=== PATIENT | female | born 1945 | race Two or more races ===

== ENCOUNTER → 2018-06-05 | Outpatient (CLI) | payer MEDICARE, OTHER ==
--- NOTE | 2018-06-05 15:09 | RADIOLOGY REPORT (SQ) ---
EXAM DESCRIPTION: CHEST PA/LATERAL COMPLETED DATE/TIME: 06/05/2018 2:50 pm REASON FOR STUDY: SHORTNESS OF BREATH COMPARISON: Two-view chest 06/15/2015, AP chest 11/16/2014 EXAM PARAMETERS: NUMBER OF VIEWS: two views TECHNIQUE: Digital Frontal and Lateral radiographic views of the chest acquired. RADIATION DOSE: NA LIMITATIONS: none FINDINGS: LUNGS AND PLEURA: Pulmonary vascular congestion is present with interstitial edema at both bases. No pleural effusions. No pneumothorax. Stable bandlike scarring at both bases, unchanged 06/15/2015 chest film. MEDIASTINUM AND HILAR STRUCTURES: No masses or contour abnormalities. HEART AND VASCULAR STRUCTURES: Mild to moderate cardiomegaly BONES: No acute findings. HARDWARE: None in the chest. OTHER: No other significant finding. IMPRESSION: Cardiomegaly with pulmonary vascular congestion and interstitial pulmonary edema. TECHNICAL DOCUMENTATION: JOB ID: [id number] [employer]- All Rights Reserved Reading location - IP/workstation name: [email or web address]
[2018-06-05 15:49] LABS: ABSOLUTE BASOPHILS # (AUTO) 0.1 10^3/uL (0.0-0.2); ABSOLUTE EOSINOPHILS # (AUTO) 0.2 10^3/uL (0.0-0.6); ABSOLUTE LYMPHOCYTES (AUTO) 3.1 10^3/uL (0.5-4.7); ABSOLUTE MONOCYTES (AUTO) 0.5 10^3/uL (0.1-1.4); ABSOLUTE NEUT (AUTO) 6.8 10^3/uL (1.7-8.2); BASOPHILS % (AUTO) 1.2 % (0-2); EOSINOPHILS % (AUTO) 1.9 % (0-6); HEMATOCRIT 38.5 % (36.0-47.0); LYMPHOCYTES % (AUTO) 29.2 % (13-45); MEAN CORPUSCULAR HEMOGLOBIN 29.3 pg (27.0-33.4); MEAN CORPUSCULAR HGB CONC 33.6 g/dL (32.0-36.0); MEAN CORPUSCULAR VOLUME 87 fl (80-97); MONOCYTES % (AUTO) 4.5 % (3-13); PLATELET COUNT 298 10^3/uL (150-450); RED BLOOD COUNT 4.42 10^6/uL (3.72-5.28); RED CELL DISTRIBUTION WIDTH 14.2 % (11.5-14.0); SEGMENTED NEUTROPHILS % (AUTO) 63.2 % (42-78); TOTAL CELLS COUNTED % (AUTO) 100 %; WHITE BLOOD COUNT 10.7 10^3/uL (4.0-10.5)
[2018-06-05 15:58] LABS: ALANINE AMINOTRANSFERASE 47 U/L (9-52); ALBUMIN 4.1 g/dL (3.5-5.0); ALKALINE PHOSPHATASE 98 U/L (38-126); ANION GAP 14 (5-19); ASPARTATE AMINO TRANSFERASE 39 U/L (14-36); BILIRUBIN,DIRECT 0.5 mg/dL (0.0-0.4); BILIRUBIN,TOTAL 0.8 mg/dL (0.2-1.3); BLOOD UREA NITROGEN 20 mg/dL (7-20); CARBON DIOXIDE 19 mmol/L (22-30); CHLORIDE 106 mmol/L (98-107); GLUCOSE 117 mg/dL (75-110); POTASSIUM 5.3 mmol/L (3.6-5.0); SODIUM 139.3 mmol/L (137-145); TOTAL PROTEIN 7.2 g/dL (6.3-8.2)
== END ==
LOC: OD 14:19
PROVIDERS: ATTEND Physician Assistant
DX: R06.02 Shortness of breath (principal); R00.2 Palpitations
CPT/HCPCS: 36415; 71046; 80053; 83735; 85025; 85379

== ENCOUNTER → 2018-06-06 | Outpatient (CLI) | payer MEDICARE, OTHER ==
--- NOTE | 2018-06-06 15:55 | RADIOLOGY REPORT (SQ) ---
EXAM DESCRIPTION: CHEST 2 VIEWS COMPLETED DATE/TIME: 06/06/2018 3:45 pm REASON FOR STUDY: CHEST PAIN; AFIB COMPARISON: 06/05/2018 EXAM PARAMETERS: NUMBER OF VIEWS: two views TECHNIQUE: Digital Frontal and Lateral radiographic views of the chest acquired. RADIATION DOSE: NA LIMITATIONS: none FINDINGS: LUNGS AND PLEURA: Linear atelectasis at the lung bases without improvement. No effusions. MEDIASTINUM AND HILAR STRUCTURES: No masses or contour abnormalities. HEART AND VASCULAR STRUCTURES: Heart enlarged. Vascular congestion. Similar to previous. BONES: No acute findings. HARDWARE: None in the chest. OTHER: No other significant finding. IMPRESSION: No improvement since the prior study. Vascular congestion. Linear atelectasis. TECHNICAL DOCUMENTATION: JOB ID: [id number] [employer]- All Rights Reserved Reading location - IP/workstation name: [email or web address]
--- NOTE | 2018-06-06 16:41 | RADIOLOGY REPORT (SQ) ---
EXAM DESCRIPTION: NM LUNG VENT/PERF SCAN COMPLETED DATE/TIME: 06/06/2018 4:32 pm REASON FOR STUDY: CHEST PAIN; AFIB COMPARISON: None. RADIONUCLIDE AND DOSE: 5.5 millicuries TC-99m MAA Intravenous 30.6 millicuries TC-99m DTPA Inhaled aerosol TECHNIQUE: Eight views of the lungs acquired post ventilation of DTPA aerosol. Eight matching views of the lungs acquired following injection of MAA. LIMITATIONS: None. FINDINGS: VENTILATION: Symmetric and homogeneous distribution of DTPA aerosol during ventilatory pha se. No significant areas of photopenia. PERFUSION: Perfusion images with normal homogenous activity and no wedge-shaped or segmental defects. No ventilation-perfusion mismatches. OTHER: No other significant finding. IMPRESSION: Low probability pulmonary embolus. TECHNICAL DOCUMENTATION: JOB ID: [id number] [email or web address]- All Rights Reserved Reading location - IP/workstation name: [email or web address]
== END ==
LOC: RAD 14:34
PROVIDERS: ATTEND Internal Medicine Cardiovascular Disease
DX: I48.91 Unspecified atrial fibrillation (principal); R07.9 Chest pain, unspecified; J98.11 Atelectasis
CPT/HCPCS: 71046; 78582; A9540; A9567; Q9969

== ENCOUNTER 2018-06-08 01:22 | Inpatient (IN) | payer MEDICARE, OTHER ==
[2018-06-08] MEDS ORDERED: DILTIAZEM HCL INJ 25 MG/5 ML VIAL IV ONE (02:08)
[2018-06-08] MEDS ORDERED: DILTIAZEM HCL/D5W 125 MG/125 ML RTUINJ IV PRN (02:08)
[2018-06-08] MEDS ORDERED: FUROSEMIDE INJ/PF 40 MG/4 ML SDV IV ONE (02:12)
[2018-06-08] MEDS ORDERED: ASPIRIN 81 MG TABLET, CHEWABLE PO ONE (02:22)
[2018-06-08 02:24] LABS: ABSOLUTE BASOPHILS # (AUTO) 0.1 10^3/uL (0.0-0.2); ABSOLUTE LYMPHOCYTES (AUTO) 2.9 10^3/uL (0.5-4.7); ABSOLUTE MONOCYTES (AUTO) 0.5 10^3/uL (0.1-1.4); ABSOLUTE NEUT (AUTO) 10.7 10^3/uL (1.7-8.2); BASOPHILS % (AUTO) 0.9 % (0-2); EOSINOPHILS % (AUTO) 0.3 % (0-6); HEMATOCRIT 38.3 % (36.0-47.0); HEMOGLOBIN 13.4 g/dL (12.0-15.5); LYMPHOCYTES % (AUTO) 20.3 % (13-45); MEAN CORPUSCULAR HEMOGLOBIN 30.5 pg (27.0-33.4); MEAN CORPUSCULAR VOLUME 87 fl (80-97); MONOCYTES % (AUTO) 3.7 % (3-13); PLATELET COUNT 382 10^3/uL (150-450); RED BLOOD COUNT 4.39 10^6/uL (3.72-5.28); RED CELL DISTRIBUTION WIDTH 14.6 % (11.5-14.0); SEGMENTED NEUTROPHILS % (AUTO) 74.8 % (42-78); TOTAL CELLS COUNTED % (AUTO) 100 %; WHITE BLOOD COUNT 14.3 10^3/uL (4.0-10.5)
--- NOTE | 2018-06-08 02:26 | ER Document Report ---
ED Cardiac - General Chief Complaint: Chest Pain > 30 Stated Complaint: CHEST PAIN Time Seen by Provider: 06/08/18 01:59 TRAVEL OUTSIDE OF THE [place] IN LAST 30 DAYS: No - HPI Notes: Patient is a 72-year-old female that presents to the emergency department for chief complaint of shortness of breath and palpitations. Patient states she has been feeling intermittent heart palpitations which she describes as "uncomfortable" for the last few days. Today the symptoms got worse. She has associated diaphoresis but denies any nausea or vomiting. Patient has been seen by her primary care doctor for her shortness of breath. She was diagnosed this week with atrial fibrillation and started on Eliquis and metoprolol. She has been compliant with these medications. She also states she had a negative VQ scan this week as well. She reports her shortness of breath is worsening. She now feels like she is having swelling in her legs and bloating in her abdomen. Her shortness of breath is worse with laying flat. Past Medical History: A. fib, hypertension, diabetes, hypothyroidism Past Surgical History: Reviewed in chart Social History: Denies drugs alcohol and tobacco Family History: Reviewed and noncontributory for presenting illness Allergies: Reviewed, see documented allergy list. REVIEW OF SYSTEMS: CONSTITUTIONAL : No fever No chills diaphoresis No recent illness EENT: No vision changes No congestion No sore throat CARDIOVASCULAR: chest pain palpitations RESPIRATORY: shortness of breath No cough No difficulty breathing GASTROINTESTINAL: No abdominal pain No nausea No vomiting No diarrhea GENITOURINARY: No dysuria No hematuria No difficulty urinating MUSCULOSKELETAL: No back pain No leg pain No arm pain SKIN: No rashes No lesions LYMPHATIC: No swollen, enlarged glands. NEUROLOGICAL: No lightheadedness No headache No weakness No paresthesias PSYCHIATRIC: No anxiety No depression PHYSICAL EXAMINATION: Vital signs reviewed, nursing noted reviewed. GENERAL: well-nourished and in mild acute distress. HEAD: Atraumatic, normocephalic. EYES: Eyes appear normal, extraocular movements intact, sclera anicteric, conjunctiva are normal. ENT: nares patent, oropharynx clear without exudates. Moist mucous membranes. NECK: Normal range of motion, supple without lymphadenopathy LUNGS: Bibasilar rhonchi, diminished lung sounds diffusely, mild accessory muscle use and tachypnea HEART: Tachycardic, irregularly irregular rhythm without murmurs ABDOMEN: Protuberant soft, nontender, normoactive bowel sounds. No rebound, guarding, or rigidity. No masses appreciated. EXTREMITIES: Nontender, good range of motion, +2 pitting edema bilateral lower extremities NEUROLOGICAL: No focal neurological deficits. Moves all extremities spontaneously Motor and sensory grossly intact on exam. PSYCH: Normal mood, normal affect. SKIN: Warm, Dry, normal turgor, no rashes or lesions noted on exposed skin - Related Data Allergies/Adverse Reactions: iodine [Iodine] Allergy (Unknown, Verified 11/10/14 08:28) unsure Tuberculin,Ppd,Multi-Puncture [From Tuberculin PPD Miryam Test] Adverse Reaction (Intermediate, Verified 11/10/14 08:27) area swelled up had positive reaction Past Medical History - Social History Smoking Status: Never Smoker Family History: Reviewed & Not Pertinent - Past Medical History Cardiac Medical History: Reports: Hx Coronary Artery Disease, Hx Hypertension Denies: Hx Heart Attack Pulmonary Medical History: Denies: Hx Asthma - seasonal allergies, Hx Bronchitis, Hx COPD, Hx Pneumonia Neurological Medical History: Denies: Hx Seizures Musculoskeletal Medical History: Denies Hx Arthritis Past Surgical History: Reports: Hx Hysterectomy - Immunizations Hx Diphtheria, Pertussis, Tetanus Vaccination: Yes Physical Exam - Vital signs Vitals: Temp Pulse Resp BP Pulse Ox 97.5 F 136 H 20 106/74 98 06/08/18 01:37 06/08/18 01:37 06/08/18 01:37 06/08/18 01:37 06/08/18 01:37 Course - Re-evaluation Re-evalutation: 06/08/18 02:26 Vitals reviewed. Nursing notes reviewed. Patient is in atrial fibrillation with RVR. She was placed on telemetry monitoring. Patient started on Cardizem for rate control. She appears edematous and chest x-ray recently showed pulmonary edema. Patient was given a dose of Lasix for her fluid overload state. She was also given aspirin for her complaint of chest pain. 06/08/18 03:43 Patient reevaluated and is feeling better with her heart rate controlled. Her heart rate currently is 98 on the Cardizem infusion. Chest x-ray shows pulmonary vascular congestion which is unchanged from her x-rays earlier this week. Her troponin is negative. She does have an elevation in her BNP however there are no comparison studies available. Patient will be admitted to the hospital for further cardiac care. I did discuss her case with Dr. Birch who has seen her in the office this week, he feels comfortable with her being admitted at this facility and will see her on consultation. Case was discussed with Dr. Payan who requested a delta troponin and bilateral venous duplex. Dr. Payan accepts admission. Patient is stable at time of admission and in agreement with plan of care. Laboratory 06/08/18 06/08/18 06/08/18 02:19 02:19 02:19 WBC 14.3 H RBC 4.39 Hgb 13.4 Hct 38.3 MCV 87 MCH 30.5 MCHC 35.0 RDW 14.6 H Plt Count 382 Seg Neutrophils % 74.8 Lymphocytes % 20.3 Monocytes % 3.7 Eosinophils % 0.3 Basophils % 0.9 Absolute Neutrophils 10.7 H Absolute Lymphocytes 2.9 Absolute Monocytes 0.5 Absolute Eosinophils 0.0 Absolute Basophils 0.1 Sodium 133.6 L Potassium 5.4 H Chloride 103 Carbon Dioxide 19 L Anion Gap 12 BUN 33 H Creatinine 1.27 H Est GFR ( Amer) 50 L Est GFR (Non-Af Amer) 42 L Glucose 140 H Calcium 9.6 Troponin I < 0.012 NT-Pro-B Natriuret Pep 3760 H Chest X-Ray 06/08/18 02:00 IMPRESSION: Little change from the prior, as above copyright 2011 [employer]- All Rights Reserved - Vital Signs Vital signs: Temp Pulse Resp BP Pulse Ox 97.5 F 136 H 20 106/74 98 06/08/18 01:37 06/08/18 01:37 06/08/18 01:37 06/08/18 01:37 06/08/18 01:37 - Laboratory Result Diagrams: 06/08/18 02:19 06/08/18 02:19 Laboratory results interpreted by me: 06/08/18 06/08/18 06/08/18 02:19 02:19 02:19 WBC 14.3 H RDW 14.6 H Absolute Neutrophils 10.7 H Sodium 133.6 L Potassium 5.4 H Carbon Dioxide 19 L BUN 33 H Creatinine 1.27 H Est GFR ( Amer) 50 L Est GFR (Non-Af Amer) 42 L Glucose 140 H NT-Pro-B Natriuret Pep 3760 H - EKG Interpretation by Me Additional EKG results interpreted by me: 06/08/18 02:46 Interpreted by myself [id number]: Atrial fibrillation with RVR, rate 132, normal axis, LVH Critical Care Note - Critical Care Note Total time excluding time spent on procedures (mins): 40 Comments: Discussion with medical representative. Repeat re-evaluations. Potential for cardiovascular decompensation Discharge - Discharge Clinical Impression: Atrial fibrillation with RVR, Peripheral edema, Pulmonary vascular congestion Chest pain Qualifiers: Chest pain type: unspecified Qualified Code(s): R07.9 - Chest pain, unspecified Condition: Stable Disposition: ADMITTED INPATIENT Admitting Provider: [facility] Admitted: [facility]
[2018-06-08 02:48] LABS: ANION GAP 12 (5-19); BLOOD UREA NITROGEN 33 mg/dL (7-20); CALCIUM 9.6 mg/dL (8.4-10.2); CARBON DIOXIDE 19 mmol/L (22-30); CHLORIDE 103 mmol/L (98-107); GLUCOSE 140 mg/dL (75-110); POTASSIUM 5.4 mmol/L (3.6-5.0); SODIUM 133.6 mmol/L (137-145)
[2018-06-08 02:53] LABS: NT PRO BNP 3760 pg/mL (5-900)
--- NOTE | 2018-06-08 02:54 | RADIOLOGY REPORT (SQ) ---
EXAM DESCRIPTION: XR CHEST 1 VIEW COMPLETED DATE/TME: 06/08/2018 02:00 CLINICAL HISTORY: 72 years, Female, SOB COMPARISON: 06/05/2018 chest NUMBER OF VIEWS: 1 TECHNIQUE: AP portable chest LIMITATIONS: None. FINDINGS: The heart is enlarged but stable. Coarse interstitial changes bilaterally. Small bibasilar effusions/pleural thickening. No pneumothorax. Osteopenia. IMPRESSION: Little change from the prior, as above copyright 2010 [employer]- All Rights Reserved
[2018-06-08 02:56] LABS: TROPONIN I < 0.012 ng/mL
[2018-06-08] MEDS ORDERED: ACETAMINOPHEN 325 MG TABLET PO PRN (03:40)
[2018-06-08] MEDS: FUROSEMIDE INJ/PF 20 MG/2 ML SDV IV SCH ×3 (05:49→22:00)
[2018-06-08] MEDS: APIXABAN 5 MG TABLET PO SCH ×2 (09:44→18:19)
[2018-06-08] MEDS: FAMOTIDINE 20 MG TABLET PO SCH ×2 (09:44→23:15)
[2018-06-08 09:55] LABS: CREATINE KINASE MB 0.77 ng/mL (<4.55)
[2018-06-08 10:02] LABS: TROPONIN I < 0.012 ng/mL
--- NOTE | 2018-06-08 10:23 | RADIOLOGY REPORT (SQ) ---
EXAM DESCRIPTION: VENOUS BILATERAL LOWER COMPLETED DATE/TIME: 06/08/2018 9:50 am REASON FOR STUDY: edema COMPARISON: None. TECHNIQUE: Dynamic and static navarrete scale and color images acquired of both lower extremity venous sy stems. Selected spectral images acquired with additional compression and augmentation maneuvers. Imag es stored on PACS. LIMITATIONS: None. FINDINGS: RIGHT LEG COMMON FEMORAL AND FEMORAL: Normal phasicity, compression and augmentation. No visualized echogenic m aterial on navarrete scale. No defects on color images. POPLITEAL: Normal compression and augmentation. No visualized echogenic material on navarrete scale. No de fects on color images. CALF VESSELS: Normal compression and augmentation. No visualized echogenic material on navarrete scale. No defects on color image. GSV AND SSV: Normal compression. No visualized echogenic material on navarrete scale. No defects on color images. ANY DEEP VENOUS INSUFFICIENCY: Not evaluated. ANY EVIDENCE OF POPLITEAL CYST: No. OTHER: No other significant finding. LEFT LEG COMMON FEMORAL AND FEMORAL: Normal phasicity, compression and augmentation. No visualized echogenic m aterial on navarrete scale. No defects on color images. POPLITEAL: Normal compression and augmentation. No visualized echogenic material on navarrete scale. No de fects on color images. CALF VESSELS: Normal compression and augmentation. No visualized echogenic material on navarrete scale. No defects on color images. GSV AND SSV: Normal compression. No visualized echogenic material on navarrete scale. No defects on color images. ANY DEEP VENOUS INSUFFICIENCY: Not evaluated. ANY EVIDENCE POPLITEAL CYST: No. OTHER: No other significant finding. IMPRESSION: NO EVIDENCE DVT OR SVT IN EITHER LEG. TECHNICAL DOCUMENTATION: JOB ID: [id number] [employer]- All Rights Reserved Reading location - IP/workstation name: [email or web address]
[2018-06-08 10:51] LABS: ALANINE AMINOTRANSFERASE 259 U/L (9-52); ALBUMIN 3.9 g/dL (3.5-5.0); ALKALINE PHOSPHATASE 108 U/L (38-126); ANION GAP 15 (5-19); ASPARTATE AMINO TRANSFERASE 337 U/L (14-36); BILIRUBIN,DIRECT 0.4 mg/dL (0.0-0.4); BILIRUBIN,TOTAL 0.8 mg/dL (0.2-1.3); BLOOD UREA NITROGEN 33 mg/dL (7-20); CALCIUM 9.7 mg/dL (8.4-10.2); CARBON DIOXIDE 16 mmol/L (22-30); CHLORIDE 102 mmol/L (98-107); GLUCOSE 136 mg/dL (75-110); POTASSIUM 4.6 mmol/L (3.6-5.0); SODIUM 133.2 mmol/L (137-145); TOTAL PROTEIN 7.1 g/dL (6.3-8.2)
[2018-06-08] MEDS: DILTIAZEM HCL 90 MG TABLET PO SCH ×2 (11:26→18:18)
--- NOTE | 2018-06-08 12:52 | EKG REPORT ---
SEVERITY:- ABNORMAL ECG - ATRIAL FLUTTER/FIBRILLATION, A-RATE 265 NONSPECIFIC INTRAVENTRICULAR CONDUCTION DELAY PROBABLE LEFT VENTRICULAR HYPERTROPHY : Confirmed by: Flynn Birch 08-Jun-2018 12:52:31
[2018-06-08] MEDS ORDERED: CEFTRIAXONE 1 GM/D5W RTU 1 GM/50 ML RTUPB IV SCH (13:00)
--- NOTE | 2018-06-08 13:00 | PDOC H&P ---
History of Present Illness Admission Date/PCP: 06/08/18 03:47 ASHELY WEISS MD Patient complains of: Shortness of the breath chest pain History of Present Illness: ALMA BO is a 72 year old female This is a 72-year-old female with a history of the hypertension's hyperlipidemia just recently diagnosed with the atrial fibrillation's this week seen by my lani caal start on a beta-jim and seen by the Dr. Birch the calender runner 2 days back started on Eliquis and increased metoprolol Patient's son noticed that the patient having intermittent heart palpitations and she is feeling uncomfortable and the patient's was a little bit diaphoretic but denied any nausea vomiting and patients came to the emergency department well patient responded to defibrillation with a rapid ventricular response and patient was put on a Cardizem drip So the patient's patient is feeling better the heart rate is running 70-90 range Currently her stress test and echocardiogram done by Dr. Birch and according to the heme everything was normal Patient was complained of some abdominal discomfort and all of the LFT was elevated was all normal to 3 days back Patient is otherwise no nausea no vomiting feeling much better no chest pain no short of breath Patient has a long-standing history of the smoking and history of the type 2 diabetes and hypothyroidism Past Medical History Cardiac Medical History: Reports: Coronary Artery Disease, Hypertension Denies: Myocardial Infarction Pulmonary Medical History: Denies: Asthma - seasonal allergies, Bronchitis, Chronic Obstructive Pulmonary Disease (COPD), Pneumonia Neurological Medical History: Denies: Seizures Endocrine Medical History: Reports: Diabetes Mellitus Type 2 GI Medical History: Reports: Gastroesophageal Reflux Disease Musculoskeltal Medical History: Denies: Arthritis Hematology: Denies: Anemia Past Surgical History Past Surgical History: Reports: Hysterectomy Social History Smoking Status: Former Smoker Last Time Smoked: 2009 Frequency of Alcohol Use: Occasional Hx Recreational Drug Use: No Hx Prescription Drug Abuse: No Family History Family History: Reviewed & Not Pertinent Parental Family History Reviewed: Yes Children Family History Reviewed: Yes Sibling(s) Family History Reviewed.: Yes Medication/Allergy Home Medications: Cetirizine HCl [Zyrtec 10 mg Tablet] 10 mg PO DAILY 06/08/18 Ezetimibe [Zetia 10 mg Tablet] 10 mg PO DAILY 06/08/18 Levothyroxine Sodium [Synthroid 0.1 mg Tablet] 0.1 mg PO Q6AM 12/29/18 Lisinopril [Prinivil] 20 mg PO DAILY 06/08/18 Metformin HCl [Glucophage 500 mg Tablet] 500 mg PO DAILY 06/08/18 Metoprolol Tartrate [Lopressor 25 mg Tablet] 25 mg PO Q12 06/08/18 Allergies/Adverse Reactions: iodine [Iodine] Allergy (Unknown, Verified 11/10/14 08:28) unsure Tuberculin,Ppd,Multi-Puncture [From Tuberculin PPD Miryam Test] Adverse Reaction (Intermediate, Verified 11/10/14 08:27) area swelled up had positive reaction Review of Systems Constitutional: ABSENT: chills, fever(s), headache(s), weight gain, weight loss Eyes: ABSENT: visual disturbances Ears: ABSENT: hearing changes Cardiovascular: PRESENT: chest pain, dyspnea on exertion. ABSENT: edema, orthropnea, palpitations Respiratory: ABSENT: cough, hemoptysis Gastrointestinal: PRESENT: abdominal pain. ABSENT: constipation, diarrhea, hematemesis, hematochezia, nausea, vomiting Genitourinary: ABSENT: dysuria, hematuria Musculoskeletal: ABSENT: joint swelling Integumentary: ABSENT: rash, wounds Neurological: ABSENT: abnormal gait, abnormal speech, confusion, dizziness, focal weakness, syncope Psychiatric: ABSENT: anxiety, depression, homidical ideation, suicidal ideation Endocrine: ABSENT: cold intolerance, heat intolerance, menstrual abnormalities, polydipsia, polyuria Hematologic/Lymphatic: ABSENT: easy bleeding, easy bruising, lymphadenopathy Physical Exam Vital Signs: Temp Pulse Resp BP Pulse Ox 98.4 F 72 20 118/65 98 06/08/18 11:40 06/08/18 12:00 06/08/18 11:40 06/08/18 12:00 06/08/18 11:40 Intake & Output 06/07/18 06/08/18 06/09/18 06:59 06:59 06:59 Intake Total 2 95 Balance 2 95 Weight 102 kg General appearance: PRESENT: no acute distress, well-developed, well-nourished Head exam: PRESENT: atraumatic, normocephalic Eye exam: PRESENT: conjunctiva pink, EOMI, PERRLA. ABSENT: scleral icterus Ear exam: PRESENT: normal external ear exam Mouth exam: PRESENT: moist, tongue midline Neck exam: PRESENT: full ROM. ABSENT: carotid bruit, JVD, lymphadenopathy, thyromegaly Respiratory exam: PRESENT: clear to auscultation patrice Cardiovascular exam: PRESENT: RRR. ABSENT: diastolic murmur, rubs, systolic murmur Pulses: PRESENT: normal dorsalis pedis pul, +2 pedal pulses bilateral Vascular exam: PRESENT: normal capillary refill GI/Abdominal exam: PRESENT: normal bowel sounds, soft. ABSENT: distended, guarding, mass, organolmegaly, rebound, tenderness Rectal exam: PRESENT: deferred Musculoskeletal exam: PRESENT: ambulatory Neurological exam: PRESENT: alert, awake, oriented to person, oriented to place, oriented to time, oriented to situation, CN II-XII grossly intact. ABSENT: motor sensory deficit Psychiatric exam: PRESENT: appropriate affect, normal mood. ABSENT: homicidal ideation, suicidal ideation Skin exam: PRESENT: dry, intact, warm. ABSENT: cyanosis, rash Results Laboratory Results: 06/08/18 02:19 06/08/18 09:00 06/08/18 06/08/18 06/08/18 02:19 02:19 02:19 WBC 14.3 H RBC 4.39 Hgb 13.4 Hct 38.3 MCV 87 MCH 30.5 MCHC 35.0 RDW 14.6 H Plt Count 382 Seg Neutrophils % 74.8 Lymphocytes % 20.3 Monocytes % 3.7 Eosinophils % 0.3 Basophils % 0.9 Absolute Neutrophils 10.7 H Absolute Lymphocytes 2.9 Absolute Monocytes 0.5 Absolute Eosinophils 0.0 Absolute Basophils 0.1 Sodium 133.6 L Potassium 5.4 H Chloride 103 Carbon Dioxide 19 L Anion Gap 12 BUN 33 H Creatinine 1.27 H Est GFR ( Amer) 50 L Est GFR (Non-Af Amer) 42 L Glucose 140 H Calcium 9.6 Magnesium Total Bilirubin AST ALT Alkaline Phosphatase Total Protein Albumin TSH 1.62 06/08/18 09:00 WBC RBC Hgb Hct MCV MCH MCHC RDW Plt Count Seg Neutrophils % Lymphocytes % Monocytes % Eosinophils % Basophils % Absolute Neutrophils Absolute Lymphocytes Absolute Monocytes Absolute Eosinophils Absolute Basophils Sodium 133.2 L Potassium 4.6 Chloride 102 Carbon Dioxide 16 L Anion Gap 15 BUN 33 H Creatinine 1.19 Est GFR ( Amer) 54 L Est GFR (Non-Af Amer) 45 L Glucose 136 H Calcium 9.7 Magnesium 1.8 Total Bilirubin 0.8 AST 337 H ALT 259 H Alkaline Phosphatase 108 Total Protein 7.1 Albumin 3.9 TSH 06/08/18 06/08/18 06/08/18 02:19 09:00 09:00 Creatine Kinase 52 CK-MB (CK-2) 0.77 Troponin I < 0.012 < 0.012 NT-Pro-B Natriuret Pep 3760 H Impressions: Chest X-Ray 06/08/18 02:00 IMPRESSION: Little change from the prior, as above copyright 2011 [employer]- All Rights Reserved Venous Doppler Study 06/08/18 03:38 IMPRESSION: NO EVIDENCE DVT OR SVT IN EITHER LEG. Assessment & Plan - Diagnosis (1) Atrial fibrillation with RVR Is this a current diagnosis for this admission?: Yes Plan: Patient is currently on a Cardizem drip is currently already on Eliquis as per discussed with the cardiology switch to the p.o. Cardizem (2) Chest pain Qualifiers: Chest pain type: unspecified Qualified Code(s): R07.9 - Chest pain, unspecified Is this a current diagnosis for this admission?: Yes Plan: Is likely from the atrial fibrillation's patient's initial 2 cardiac enzyme is negative recent stress is also negative's will consult the cardiology Patient's VQ scan is also negative and the ultrasound of the lower extremities also negative (3) Congestive heart failure Qualifiers: Heart failure type: diastolic Heart failure chronicity: acute Qualified Code(s): I50.31 - Acute diastolic (congestive) heart failure Is this a current diagnosis for this admission?: Yes Plan: With new onset of the heart failure with recent echocardiogram was stable will consult the cardiology Dr. Birch for further evaluation and start the Lasix IV every 8 (4) Abnormal LFTs Is this a current diagnosis for this admission?: Yes Plan: Get the ultrasound of the abdomen and the CT abdomen and gallbladder disease Is likely a possible vascular congestions (5) Hypertension Qualifiers: Hypertension type: essential hypertension Qualified Code(s): I10 - Essential (primary) hypertension Is this a current diagnosis for this admission?: Yes (6) Hypothyroidism Qualifiers: Hypothyroidism type: unspecified Qualified Code(s): E03.9 - Hypothyroidism, unspecified Is this a current diagnosis for this admission?: Yes (7) Type 2 diabetes mellitus Qualifiers: Diabetes mellitus shelter insulin use: without extermination supervisor use Is this a current diagnosis for this admission?: Yes Plan: Continues a sliding scale (8) Leukocytosis Qualifiers: Leukocytosis type: unspecified Qualified Code(s): D72.829 - Elevated white blood cell count, unspecified Is this a current diagnosis for this admission?: Yes Plan: Get the CT scan of the abdomen and pelvis to rule out any etiology for the gallbladder Start the patient on IV Rocephin Get the blood culture urine culture - Time Time Spent: 50 to 70 Minutes Medications reviewed and adjusted accordingly: Yes Anticipated discharge: Home Within: Other - Inpatient Certification Based on my medical assessment, after consideration of the patient's comorbidities, presenting symptoms, or acuity I expect that the services needed warrant INPATIENT care.: Yes I certify that my determination is in accordance with my understanding of Medic are's requirements for reasonable and necessary INPATIENT services [42 CFR 412.3e].: Yes Medical Necessity: Need Close Monitoring Due to Risk of Patient Decompensation, Need For Continuous Telemetry Monitoring Post Hospital Care: D/C Travelift Operator Documentation - Plan Summary Plan Summary: Patient examined and seen in IMCU with extensive discussed with the patient and the nursing staff and patient's cardiology
--- NOTE | 2018-06-08 13:31 | RADIOLOGY REPORT (SQ) ---
EXAM DESCRIPTION: CT ABD/PELVIS NO ORAL OR IV COMPLETED DATE/TIME: 06/08/2018 1:14 pm REASON FOR STUDY: abd pain COMPARISON: None. TECHNIQUE: CT scan of the abdomen and pelvis performed without intravenous or oral contrast. Images reviewed with lung, soft tissue, and bone windows. Reconstructed coronal and sagittal MPR images revi ewed. All images stored on PACS. All CT scanners at this facility use dose modulation, iterative reconstruction, and/or weight based d osing when appropriate to reduce radiation dose to as low as reasonably achievable (ALARA). [facility]: Dose Right [facility]: CareDose [facility]: Dose Right [facility]: Teradose 4D [facility]: [employer] RADIATION DOSE: CT Rad equipment meets quality standard of care and radiation dose reduction techniq ues were employed. CTDIvol: 20.6 mGy. DLP: 1007 mGy-cm.mGy. LIMITATIONS: None. FINDINGS: LOWER CHEST: Bilateral small -moderate pleural effusions. Patchy areas of basilar subsegm ental volume loss and consolidation. Cardiomegaly. No pericardial effusion. NON-CONTRASTED LIVER, SPLEEN, ADRENALS: Liver looks prominent and likely fatty. No focal lesions. S pleen and adrenals unremarkable. PANCREAS: No masses. No peripancreatic inflammatory changes. GALLBLADDER: No identified stones by CT criteria. No inflammatory changes to suggest cholecystitis. RIGHT KIDNEY AND URETER: No solid masses. No significant calcification. No hydronephrosis or hydroure ter. LEFT KIDNEY AND URETER: No solid masses. No significant calcification. No hydronephrosis or hydrouret er. AORTA AND RETROPERITONEUM: Dense aortic calcification without aneurysm. No retroperitoneal mass or a denopathy. BOWEL AND PERITONEAL CAVITY: Diverticular disease in the distal colon but no active diverticulitis storm ggested. No mechanical bowel obstruction or ascites or abnormal gas. APPENDIX: Normal. PELVIS, BLADDER, AND ABDOMINAL WALL:No abnormal masses. No free fluid. Bladder normal. BONES: No significant findings. OTHER: No other significant finding. IMPRESSION: 1. No acute or suspicious abdominopelvic abnormality. 2. Pulmonary findings as above. Basilar effusions and airspace disease/volume loss. Concerning for pneumonia and/or congestive failu re. TECHNICAL DOCUMENTATION: JOB ID: [id number] Quality ID # [id number]: Final reports with documentation of one or more dose reduction techniques (e.g., Au tomated exposure control, adjustment of the mA and/or kV according to patient size, use of iterative reconstruction technique) 2010 [employer]- All Rights Reserved Reading location - IP/workstation name: [email or web address]
--- NOTE | 2018-06-08 13:32 | RADIOLOGY REPORT (SQ) ---
EXAM DESCRIPTION: U/S ABDOMEN COMPLETE W/O DOP COMPLETED DATE/TIME: 06/08/2018 1:21 pm REASON FOR STUDY: abnormal lft/abd pain COMPARISON: None. TECHNIQUE: Dynamic and static grayscale images acquired of the abdomen and recorded on PACS. Additio nal selected color Doppler and spectral images recorded. LIMITATIONS: Limited by body habitus and acoustical interference from gas. FINDINGS: PANCREAS: Not seen. LIVER: Fatty. Enlarged at 27 cm. No focal mass. LIVER VASCULATURE: Normal directional flow of the main portal vein and hepatic veins. GALLBLADDER: Gallbladder has wall thickness of approximately 4 mm. This may be due to contracted sta te (patient not NPO. No stones. ULTRASOUND-DETECTED HANEY'S SIGN: Negative. INTRAHEPATIC DUCTS AND COMMON DUCT: CBD and intrahepatic ducts normal caliber. No filling defects. INFERIOR VENA CAVA: Not seen. AORTA: Not seen. RIGHT KIDNEY: Normal size. Normal echogenicity. No solid or suspicious masses. No hydronephrosis. No calcifications. PERITONEAL AND RIGHT PLEURAL SPACE: Pleural fluid. Better seen on CT. OTHER: No other significant findings. IMPRESSION: 1. Fatty enlarged liver. 2. Contracted gallbladder without stones or evidence of acute cholecystitis. TECHNICAL DOCUMENTATION: JOB ID: [id number] [employer]- All Rights Reserved Reading location - IP/workstation name: [email or web address]
[2018-06-08] MEDS: LEVOTHYROXINE SODIUM 0.1 MG TABLET PO SCH (15:09)
[2018-06-08] MEDS: CEFTRIAXONE SODIUM 1,000 MG in DEXTROSE 5%-WATER 50 ML IV SCH (15:10)
[2018-06-08 16:32] LABS: CREATINE KINASE MB 0.74 ng/mL (<4.55)
[2018-06-08 16:36] LABS: TROPONIN I < 0.012 ng/mL
--- NOTE | 2018-06-08 20:31 | EKG REPORT ---
SEVERITY:- ABNORMAL ECG - A FIB-FLUTTER WITH VARIABLE CONDUCTION NONSPECIFIC INTRAVENTRICULAR CONDUCTION DELAY PROBABLE LEFT VENTRICULAR HYPERTROPHY : Confirmed by: Flynn Birch 08-Jun-2018 20:30:15
--- NOTE | 2018-06-08 20:46 | PDOC PROGRESS REPORT ---
Subjective Progress Note for:: 06/08/18 Subjective:: Patient was seen in the office and regularly follows up with me. She is a noted to have atrial flutter and fibrillation on a recent of his visit two days ago. At that time her main complaint was shortness of breath, fatigue and tiredness. Patient was started on Eliquis therapy and was also placed on metoprolol 25 mg three times a day. Patient was also placed on a cardiac event monitor. Subsequently however patient noted progressive shortness of breath and presented to the emergency room. In the emergency room she was noted to have elevated heart rate response and received IV Cardizem, subsequently started on bolus and also received IV diuretics. Following that she improved significantly. Reason For Visit: AFIB WITH RVR Physical Exam Vital Signs: Temp Pulse Resp BP Pulse Ox 98.3 F 110 H 19 123/57 L 97 06/08/18 19:13 06/08/18 20:20 06/08/18 19:13 06/08/18 19:13 06/08/18 19:13 Intake & Output 06/07/18 06/08/18 06/09/18 06:59 06:59 06:59 Intake Total 2 463 Output Total 1400 Balance 2 -937 Weight 102 kg Exam: GEN: NAD, patient alert oriented x3. Appearance and grooming WNL HEENT : Eyes: MANAS, Ears: No significant abnormalities, Nose: No significant abnormalities. normocephalic atraumatic. Flat midface (-), Receding chin (-) ORAL : Mallampati class IV, narrow arched palate (-) Tonsils: Not enlarged. NECK: no thyromegaly, no masses, trachea is central, JVD is 14 cm elevated, carotids 2+ with bruit (-) RESP: by basal a fine crackles noted, no wheezes or rhonchi, nonlabored, accessory muscles of respiration use (-). CV: NL S1 and S2. No significant murmurs noted, no gallop, no extra sounds, no clicks, no rub noted. GI: abd NT to palpation, no masses, bowel sounds present, no guarding or rigidity noted. EXT: no clubbing, (-) cyanosis, edema (1+), perpheral pulses diminished (no) MUSC/SKEL: no acute joint swelling noted. Muscle strength is generally intact. NEURO: no significant focal neurological deficits are note, sensation grossly intact, AO x 3 PSYCH: NL mood and affect. judgment and insight noted to be intact. SKIN: (-) rash, (-)Signs of pruritus, (-) other significant abnormality Results Laboratory Results: 06/08/18 02:19 06/08/18 09:00 06/08/18 06/08/18 06/08/18 02:19 02:19 02:19 WBC 14.3 H RBC 4.39 Hgb 13.4 Hct 38.3 MCV 87 MCH 30.5 MCHC 35.0 RDW 14.6 H Plt Count 382 Seg Neutrophils % 74.8 Lymphocytes % 20.3 Monocytes % 3.7 Eosinophils % 0.3 Basophils % 0.9 Absolute Neutrophils 10.7 H Absolute Lymphocytes 2.9 Absolute Monocytes 0.5 Absolute Eosinophils 0.0 Absolute Basophils 0.1 Sodium 133.6 L Potassium 5.4 H Chloride 103 Carbon Dioxide 19 L Anion Gap 12 BUN 33 H Creatinine 1.27 H Est GFR ( Amer) 50 L Est GFR (Non-Af Amer) 42 L Glucose 140 H Calcium 9.6 Magnesium Total Bilirubin AST ALT Alkaline Phosphatase Total Protein Albumin Lipase TSH 1.62 06/08/18 06/08/18 09:00 09:00 WBC RBC Hgb Hct MCV MCH MCHC RDW Plt Count Seg Neutrophils % Lymphocytes % Monocytes % Eosinophils % Basophils % Absolute Neutrophils Absolute Lymphocytes Absolute Monocytes Absolute Eosinophils Absolute Basophils Sodium 133.2 L Potassium 4.6 Chloride 102 Carbon Dioxide 16 L Anion Gap 15 BUN 33 H Creatinine 1.19 Est GFR ( Amer) 54 L Est GFR (Non-Af Amer) 45 L Glucose 136 H Calcium 9.7 Magnesium 1.8 Total Bilirubin 0.8 AST 337 H ALT 259 H Alkaline Phosphatase 108 Total Protein 7.1 Albumin 3.9 Lipase 105.9 TSH 06/08/18 06/08/18 06/08/18 02:19 09:00 09:00 Creatine Kinase 52 CK-MB (CK-2) 0.77 Troponin I < 0.012 < 0.012 NT-Pro-B Natriuret Pep 3760 H 06/08/18 06/08/18 15:07 15:07 Creatine Kinase 52 CK-MB (CK-2) 0.74 Troponin I < 0.012 NT-Pro-B Natriuret Pep EKG Comments: 12 lead EKG shows atrial flutter fibrillation with rapid ventricular response. This was noted on admission EKG and subsequent EKG reveals the same. Impressions: Abdomen Ultrasound 06/08/18 00:00 IMPRESSION: 1. Fatty enlarged liver. 2. Contracted gallbladder without stones or evidence of acute cholecystitis. Abdomen/Pelvis CT 06/08/18 00:00 IMPRESSION: 1. No acute or suspicious abdominopelvic abnormality. 2. Pulmonary findings as above. Basilar effusions and airspace disease/volume loss. Concerning for pneumonia and/or congestive failure. Chest X-Ray 06/08/18 02:00 IMPRESSION: Little change from the prior, as above copyright [employer]- All Rights Reserved Venous Doppler Study 06/08/18 03:38 IMPRESSION: NO EVIDENCE DVT OR SVT IN EITHER LEG. Assessment & Plan - Diagnosis (1) Atrial fibrillation with RVR Is this a current diagnosis for this admission?: Yes (2) Congestive heart failure Qualifiers: Heart failure type: diastolic Heart failure chronicity: acute Qualified Code(s): I50.31 - Acute diastolic (congestive) heart failure Is this a current diagnosis for this admission?: Yes (3) Hypertension Qualifiers: Hypertension type: essential hypertension Qualified Code(s): I10 - Essential (primary) hypertension Is this a current diagnosis for this admission?: Yes (4) Type 2 diabetes mellitus Qualifiers: Diabetes mellitus terminal operator insulin use: without residential use Diabetes mellitus complication status: with unspecified complications Qualified Code(s): E11.8 - Type 2 diabetes mellitus with unspecified complications Is this a current diagnosis for this admission?: Yes (5) Abnormal LFTs Is this a current diagnosis for this admission?: Yes - Notes Notes: Atrial fibrillation with rapid ventricular response: agree with Cardizem drip for rate control. Recommend switch to PO Cardizem, 90 mg PO 8hrs which would be roughly to well those that patient has been getting IV. May also supplement IV Cardizem 10 mg PRN for heart rate above 110 bpm. Continue chronic anticoagulation with Eliquis which was started as an outpatient. Congestive heart failure: patient clearly has CHF based on symptoms, elevated JVP and lung exam. Most likely related to diastolic dysfunction, made worse by atrial fibrillation. Patient has improved significantly with IV diuretics. Patient will benefit from daily weighing. Monitor electrolytes. Consider adding spironolactone therapy if needed. Hypertension: currently blood-pressure reasonably well controlled. Diabetes: being taken care of by the primary health organisation manager very expertly. Abnormal liver function test: feel that this is most likely related to the condition. COPD: I was told by Dr Payan that patient has significant COPD. Therefore agree with switch from better jim to Cardizem for rate control. - Time Time with patient: Greater than 35 minutes - Management plans discussed with Dr Payan and nurses. We'll repeat and EKG for tomorrow morning. Medications reviewed and adjusted accordingly: Yes
[2018-06-08 22:01] LABS: CREATINE KINASE MB 0.79 ng/mL (<4.55)
[2018-06-08 22:06] LABS: TROPONIN I < 0.012 ng/mL
[2018-06-09] MEDS ORDERED: DILTIAZEM HCL 90 MG TABLET ONE (02:05)
[2018-06-09] MEDS: DILTIAZEM HCL 90 MG TABLET PO SCH ×2 (02:28→09:22)
[2018-06-09] MEDS: FUROSEMIDE INJ/PF 20 MG/2 ML SDV IV SCH ×3 (05:24→22:28)
[2018-06-09] MEDS: LEVOTHYROXINE SODIUM 0.1 MG TABLET PO SCH (05:25)
[2018-06-09 06:16] LABS: HEMOGLOBIN 11.9 g/dL (12.0-15.5); MEAN CORPUSCULAR HEMOGLOBIN 29.4 pg (27.0-33.4); MEAN CORPUSCULAR HGB CONC 34.1 g/dL (32.0-36.0); MEAN CORPUSCULAR VOLUME 86 fl (80-97); PLATELET COUNT 285 10^3/uL (150-450); RED BLOOD COUNT 4.06 10^6/uL (3.72-5.28); RED CELL DISTRIBUTION WIDTH 14.7 % (11.5-14.0); WHITE BLOOD COUNT 10.4 10^3/uL (4.0-10.5)
[2018-06-09 06:39] LABS: ALANINE AMINOTRANSFERASE 198 U/L (9-52); ALBUMIN 3.7 g/dL (3.5-5.0); ALKALINE PHOSPHATASE 97 U/L (38-126); ANION GAP 14 (5-19); ASPARTATE AMINO TRANSFERASE 131 U/L (14-36); BILIRUBIN,DIRECT 0.3 mg/dL (0.0-0.4); BILIRUBIN,TOTAL 0.9 mg/dL (0.2-1.3); BLOOD UREA NITROGEN 32 mg/dL (7-20); CALCIUM 9.4 mg/dL (8.4-10.2); CARBON DIOXIDE 21 mmol/L (22-30); CHLORIDE 101 mmol/L (98-107); GLUCOSE 111 mg/dL (75-110); POTASSIUM 4.3 mmol/L (3.6-5.0); SODIUM 136.1 mmol/L (137-145); TOTAL PROTEIN 6.9 g/dL (6.3-8.2)
--- NOTE | 2018-06-09 08:49 | EKG REPORT ---
SEVERITY:- ABNORMAL ECG - ATRIAL FLUTTER, A-RATE 283 NONSPECIFIC INTRAVENTRICULAR CONDUCTION DELAY ABNRM R PROG, CONSIDER ASMI OR LEAD PLACEMENT : Confirmed by: Flynn Birch 09-Jun-2018 08:49:05
[2018-06-09] MEDS: APIXABAN 5 MG TABLET PO SCH ×2 (09:22→17:29)
[2018-06-09] MEDS: FAMOTIDINE 20 MG TABLET PO SCH ×2 (09:22→22:27)
[2018-06-09] MEDS ORDERED: POLYETHYLENE GLYCOL 3350 POWDER 17 GM/1 PACKET PO PRN (10:25)
[2018-06-09] MEDS: CEFTRIAXONE SODIUM 1,000 MG in DEXTROSE 5%-WATER 50 ML IV SCH (11:15)
[2018-06-09] MEDS: DOCUSATE SODIUM 100 MG CAPSULE PO SCH ×2 (11:16→17:30)
--- NOTE | 2018-06-09 11:24 | PDOC PROGRESS REPORT ---
Subjective Progress Note for:: 06/09/18 Subjective:: And is feeling much better Patient is denied any chest pain denied any shortness of the breath Patient is complaining of a little short of breath when patients start moving but other than that no other complaints Reason For Visit: AFIB WITH RVR Physical Exam Vital Signs: Temp Pulse Resp BP Pulse Ox 97.4 F 60 20 133/64 H 93 06/09/18 08:29 06/09/18 08:29 06/09/18 08:29 06/09/18 08:29 06/09/18 08:29 Intake & Output 06/08/18 06/09/18 06/10/18 06:59 06:59 06:59 Intake Total 2 1202 Output Total 3350 Balance 2 -2148 Weight 102 kg 102.4 kg General appearance: PRESENT: no acute distress, well-developed, well-nourished Head exam: PRESENT: atraumatic, normocephalic Eye exam: PRESENT: conjunctiva pink, EOMI, PERRLA. ABSENT: scleral icterus Ear exam: PRESENT: normal external ear exam Mouth exam: PRESENT: moist, tongue midline Neck exam: PRESENT: full ROM. ABSENT: carotid bruit, JVD, lymphadenopathy, thyromegaly Respiratory exam: PRESENT: clear to auscultation patrice Cardiovascular exam: PRESENT: RRR. ABSENT: diastolic murmur, rubs, systolic murmur Pulses: PRESENT: normal dorsalis pedis pul, +2 pedal pulses bilateral Vascular exam: PRESENT: normal capillary refill GI/Abdominal exam: PRESENT: normal bowel sounds, soft. ABSENT: distended, guarding, mass, organolmegaly, rebound, tenderness Rectal exam: PRESENT: deferred Extremities exam: ABSENT: pedal edema Musculoskeletal exam: PRESENT: ambulatory Neurological exam: PRESENT: alert, awake, oriented to person, oriented to place, oriented to time, oriented to situation, CN II-XII grossly intact. ABSENT: motor sensory deficit Psychiatric exam: PRESENT: appropriate affect, normal mood. ABSENT: homicidal ideation, suicidal ideation Skin exam: PRESENT: dry, intact, warm. ABSENT: cyanosis, rash Results Laboratory Results: 06/09/18 05:36 06/09/18 05:36 06/08/18 06/09/18 06/09/18 09:00 05:36 05:36 WBC 10.4 RBC 4.06 Hgb 11.9 L Hct 35.0 L MCV 86 MCH 29.4 MCHC 34.1 RDW 14.7 H Plt Count 285 Sodium 136.1 L Potassium 4.3 Chloride 101 Carbon Dioxide 21 L Anion Gap 14 BUN 32 H Creatinine 1.13 Est GFR ( Amer) 58 L Est GFR (Non-Af Amer) 48 L Glucose 111 H Calcium 9.4 Magnesium 1.7 Total Bilirubin 0.9 AST 131 H ALT 198 H Alkaline Phosphatase 97 Total Protein 6.9 Albumin 3.7 Lipase 105.9 06/08/18 06/08/18 06/08/18 02:19 09:00 09:00 Creatine Kinase 52 CK-MB (CK-2) 0.77 Troponin I < 0.012 < 0.012 NT-Pro-B Natriuret Pep 3760 H 06/08/18 06/08/18 06/08/18 15:07 15:07 21:20 Creatine Kinase 52 53 CK-MB (CK-2) 0.74 Troponin I < 0.012 NT-Pro-B Natriuret Pep 06/08/18 06/09/18 21:20 05:36 Creatine Kinase CK-MB (CK-2) 0.79 Troponin I < 0.012 NT-Pro-B Natriuret Pep 2000 H Impressions: Abdomen Ultrasound 06/08/18 00:00 IMPRESSION: 1. Fatty enlarged liver. 2. Contracted gallbladder without stones or evidence of acute cholecystitis. Abdomen/Pelvis CT 06/08/18 00:00 IMPRESSION: 1. No acute or suspicious abdominopelvic abnormality. 2. Pulmonary findings as above. Basilar effusions and airspace disease/volume loss. Concerning for pneumonia and/or congestive failure. Chest X-Ray 06/08/18 02:00 IMPRESSION: Little change from the prior, as above copyright 2011 [employer]- All Rights Reserved Venous Doppler Study 06/08/18 03:38 IMPRESSION: NO EVIDENCE DVT OR SVT IN EITHER LEG. Assessment & Plan - Diagnosis (1) Atrial fibrillation with RVR Is this a current diagnosis for this admission?: Yes Plan: Discussed with the Dr. Birch change the Cardizem CD 180 twice a day (2) Chest pain Qualifiers: Chest pain type: unspecified Qualified Code(s): R07.9 - Chest pain, unspecified Is this a current diagnosis for this admission?: Yes Plan: Is likely from the atrial fibrillation's patient's initial 2 cardiac enzyme is negative recent stress is also negative's will consult the cardiology Patient's VQ scan is also negative and the ultrasound of the lower extremities also negative (3) Congestive heart failure Qualifiers: Heart failure type: diastolic Heart failure chronicity: acute Qualified Code(s): I50.31 - Acute diastolic (congestive) heart failure Is this a current diagnosis for this admission?: Yes Plan: IV Lasix for another 24 hours and then switch to the p.o. Lasix (4) Abnormal LFTs Is this a current diagnosis for this admission?: Yes Plan: Likely from vascular congestion is currently all improving (5) Hypertension Qualifiers: Hypertension type: essential hypertension Qualified Code(s): I10 - Essential (primary) hypertension Is this a current diagnosis for this admission?: Yes (6) Hypothyroidism Qualifiers: Hypothyroidism type: unspecified Qualified Code(s): E03.9 - Hypothyroidism, unspecified Is this a current diagnosis for this admission?: Yes (7) Type 2 diabetes mellitus Qualifiers: Diabetes mellitus halfway insulin use: without halfway use Diabetes mellitus complication status: with unspecified complications Qualified Code(s): E11.8 - Type 2 diabetes mellitus with unspecified complications Is this a current diagnosis for this admission?: Yes Plan: Continues a sliding scale (8) Leukocytosis Qualifiers: Leukocytosis type: unspecified Qualified Code(s): D72.829 - Elevated white blood cell count, unspecified Is this a current diagnosis for this admission?: Yes Plan: All improving - Time Time Spent with patient: 15-24 minutes Medications reviewed and adjusted accordingly: Yes Anticipated discharge: Home Within: Other - Plan Summary Plan Summary: As changed above otherwise discussed with the patient's cardiology
[2018-06-09] MEDS: DILTIAZEM HCL 180 MG CAPSULE.CR PO SCH ×2 (12:19→22:27)
[2018-06-10 04:47] LABS: HEMATOCRIT 35.1 % (36.0-47.0); MEAN CORPUSCULAR HEMOGLOBIN 29.7 pg (27.0-33.4); MEAN CORPUSCULAR HGB CONC 34.2 g/dL (32.0-36.0); MEAN CORPUSCULAR VOLUME 87 fl (80-97); PLATELET COUNT 301 10^3/uL (150-450); RED BLOOD COUNT 4.03 10^6/uL (3.72-5.28); WHITE BLOOD COUNT 9.9 10^3/uL (4.0-10.5)
[2018-06-10 05:19] LABS: ANION GAP 14 (5-19); BLOOD UREA NITROGEN 28 mg/dL (7-20); CALCIUM 9.5 mg/dL (8.4-10.2); CARBON DIOXIDE 22 mmol/L (22-30); CHLORIDE 101 mmol/L (98-107); GLUCOSE 124 mg/dL (75-110); POTASSIUM 3.8 mmol/L (3.6-5.0); SODIUM 136.5 mmol/L (137-145)
[2018-06-10] MEDS: FUROSEMIDE INJ/PF 20 MG/2 ML SDV IV SCH (05:27)
[2018-06-10] MEDS: LEVOTHYROXINE SODIUM 0.1 MG TABLET PO SCH (05:27)
--- NOTE | 2018-06-10 06:51 | EKG REPORT ---
SEVERITY:- ABNORMAL ECG - ATRIAL FLUTTER, A-RATE 283 NONSPECIFIC INTRAVENTRICULAR CONDUCTION DELAY PROBABLE LEFT VENTRICULAR HYPERTROPHY : Confirmed by: Flynn Birch 10-Jun-2018 06:50:56
[2018-06-10] MEDS: DOCUSATE SODIUM 100 MG CAPSULE PO SCH ×2 (10:44→17:39)
[2018-06-10] MEDS: FAMOTIDINE 20 MG TABLET PO SCH ×2 (10:45→21:53)
[2018-06-10] MEDS: APIXABAN 5 MG TABLET PO SCH ×2 (10:45→17:38)
[2018-06-10] MEDS: DILTIAZEM HCL 120 MG CAP.SR.24H PO SCH ×2 (10:45→21:53)
--- NOTE | 2018-06-10 11:33 | PDOC PROGRESS REPORT ---
Subjective Progress Note for:: 06/10/18 Subjective:: Is currently doing well Patient still have a heart rates go up increase the Cardizem to 240 twice daily Patient's denied any chest pain to than any shortness of the breath As per discussed with the patient's cardiology suggest to switch to the p.o. Lasix and the patient's needs to be more ambulatory before discharge Reason For Visit: AFIB WITH RVR Physical Exam Vital Signs: Temp Pulse Resp BP Pulse Ox 97.7 F 71 14 126/71 H 97 06/10/18 07:36 06/10/18 07:36 06/10/18 07:36 06/10/18 07:36 06/10/18 07:36 Intake & Output 06/09/18 06/10/18 06/11/18 06:59 06:59 06:59 Intake Total 1202 1943 200 Output Total 3350 1999 1774 [facility] -2148 -57 -1575 Weight 102.4 kg 102.1 kg 102.1 kg General appearance: PRESENT: no acute distress, well-developed, well-nourished Head exam: PRESENT: atraumatic, normocephalic Eye exam: PRESENT: conjunctiva pink, EOMI, PERRLA. ABSENT: scleral icterus Ear exam: PRESENT: normal external ear exam Mouth exam: PRESENT: moist, tongue midline Neck exam: PRESENT: full ROM. ABSENT: carotid bruit, JVD, lymphadenopathy, thyromegaly Respiratory exam: PRESENT: clear to auscultation patrice Cardiovascular exam: PRESENT: RRR. ABSENT: diastolic murmur, rubs, systolic murmur Vascular exam: PRESENT: normal capillary refill GI/Abdominal exam: PRESENT: normal bowel sounds, soft. ABSENT: distended, guarding, mass, organolmegaly, rebound, tenderness Rectal exam: PRESENT: deferred Neurological exam: PRESENT: alert, awake, oriented to person, oriented to place, oriented to time, oriented to situation, CN II-XII grossly intact. ABSENT: motor sensory deficit Psychiatric exam: PRESENT: appropriate affect, normal mood. ABSENT: homicidal ideation, suicidal ideation Skin exam: PRESENT: dry, intact, warm. ABSENT: cyanosis, rash Results Laboratory Results: 06/10/18 04:17 06/10/18 04:17 06/10/18 06/10/18 04:17 04:17 WBC 9.9 RBC 4.03 Hgb 12.0 Hct 35.1 L MCV 87 MCH 29.7 MCHC 34.2 RDW 15.0 H Plt Count 301 Sodium 136.5 L Potassium 3.8 Chloride 101 Carbon Dioxide 22 Anion Gap 14 BUN 28 H Creatinine 1.03 Est GFR ( Amer) > 60 Est GFR (Non-Af Amer) 53 L Glucose 124 H Calcium 9.5 06/08/18 06/08/18 06/08/18 02:19 09:00 09:00 Creatine Kinase 52 CK-MB (CK-2) 0.77 Troponin I < 0.012 < 0.012 NT-Pro-B Natriuret Pep 3760 H 06/08/18 06/08/18 06/08/18 15:07 15:07 21:20 Creatine Kinase 52 53 CK-MB (CK-2) 0.74 Troponin I < 0.012 NT-Pro-B Natriuret Pep 06/08/18 06/09/18 06/10/18 21:20 05:36 04:17 Creatine Kinase CK-MB (CK-2) 0.79 Troponin I < 0.012 NT-Pro-B Natriuret Pep 2000 H 1270 H 06/10/18 04:17 Creatine Kinase CK-MB (CK-2) Troponin I < 0.012 NT-Pro-B Natriuret Pep Impressions: Abdomen Ultrasound 06/08/18 00:00 IMPRESSION: 1. Fatty enlarged liver. 2. Contracted gallbladder without stones or evidence of acute cholecystitis. Abdomen/Pelvis CT 06/08/18 00:00 IMPRESSION: 1. No acute or suspicious abdominopelvic abnormality. 2. Pulmonary findings as above. Basilar effusions and airspace disease/volume loss. Concerning for pneumonia and/or congestive failure. Chest X-Ray 06/08/18 02:00 IMPRESSION: Little change from the prior, as above copyright 2011 [facility]- All Rights Reserved Venous Doppler Study 06/08/18 03:38 IMPRESSION: NO EVIDENCE DVT OR SVT IN EITHER LEG. Assessment & Plan - Diagnosis (1) Atrial fibrillation with RVR Is this a current diagnosis for this admission?: Yes Plan: Increase the Cardizem to 240 mg p.o. twice a day (2) Chest pain Qualifiers: Chest pain type: unspecified Qualified Code(s): R07.9 - Chest pain, unspecified Is this a current diagnosis for this admission?: Yes Plan: Is likely from the atrial fibrillation's patient's initial 2 cardiac enzyme is negative recent stress is also negative's will consult the cardiology Patient's VQ scan is also negative and the ultrasound of the lower extremities also negative (3) Congestive heart failure Qualifiers: Heart failure type: diastolic Heart failure chronicity: acute Qualified Code(s): I50.31 - Acute diastolic (congestive) heart failure Is this a current diagnosis for this admission?: Yes Plan: IV Lasix for another 24 hours and then switch to the p.o. Lasix (4) Abnormal LFTs Is this a current diagnosis for this admission?: Yes Plan: Likely from vascular congestion is currently all improving (5) Hypertension Qualifiers: Hypertension type: essential hypertension Qualified Code(s): I10 - Essential (primary) hypertension Is this a current diagnosis for this admission?: Yes (6) Hypothyroidism Qualifiers: Hypothyroidism type: unspecified Qualified Code(s): E03.9 - Hypothyroidism, unspecified Is this a current diagnosis for this admission?: Yes (7) Type 2 diabetes mellitus Qualifiers: Diabetes mellitus alf insulin use: without alf use Diabetes mellitus complication status: with unspecified complications Qualified Code(s): E11.8 - Type 2 diabetes mellitus with unspecified complications Is this a current diagnosis for this admission?: Yes Plan: Continues a sliding scale (8) Leukocytosis Qualifiers: Leukocytosis type: unspecified Qualified Code(s): D72.829 - Elevated white blood cell count, unspecified Is this a current diagnosis for this admission?: Yes Plan: All improving - Time Time Spent with patient: 15-24 minutes Medications reviewed and adjusted accordingly: Yes Anticipated discharge: Home - Plan Summary Plan Summary: Continues current medications
[2018-06-10] MEDS: FUROSEMIDE 40 MG TABLET PO SCH (12:34)
[2018-06-10] MEDS: METOPROLOL TARTRATE 25 MG TABLET PO SCH ×2 (16:20→21:53)
[2018-06-11 06:00] LABS: HEMATOCRIT 35.5 % (36.0-47.0); HEMOGLOBIN 12.2 g/dL (12.0-15.5); MEAN CORPUSCULAR HEMOGLOBIN 29.9 pg (27.0-33.4); MEAN CORPUSCULAR HGB CONC 34.2 g/dL (32.0-36.0); MEAN CORPUSCULAR VOLUME 87 fl (80-97); PLATELET COUNT 314 10^3/uL (150-450); RED BLOOD COUNT 4.07 10^6/uL (3.72-5.28); RED CELL DISTRIBUTION WIDTH 14.7 % (11.5-14.0); WHITE BLOOD COUNT 10.2 10^3/uL (4.0-10.5)
[2018-06-11 06:24] LABS: ANION GAP 13 (5-19); BLOOD UREA NITROGEN 26 mg/dL (7-20); CALCIUM 9.3 mg/dL (8.4-10.2); CARBON DIOXIDE 23 mmol/L (22-30); CHLORIDE 100 mmol/L (98-107); GLUCOSE 118 mg/dL (75-110); POTASSIUM 3.9 mmol/L (3.6-5.0); SODIUM 136.1 mmol/L (137-145)
[2018-06-11] MEDS: LEVOTHYROXINE SODIUM 0.1 MG TABLET PO SCH (06:26)
[2018-06-11] MEDS: APIXABAN 5 MG TABLET PO SCH ×2 (10:31→17:54)
[2018-06-11] MEDS: FAMOTIDINE 20 MG TABLET PO SCH ×2 (10:31→21:35)
[2018-06-11] MEDS: METFORMIN HCL 500 MG TABLET PO SCH (10:31)
[2018-06-11] MEDS: DOCUSATE SODIUM 100 MG CAPSULE PO SCH ×2 (10:31→17:54)
[2018-06-11] MEDS: METOPROLOL TARTRATE 25 MG TABLET PO SCH ×2 (10:31→21:35)
[2018-06-11] MEDS: FUROSEMIDE 40 MG TABLET PO SCH (10:31)
[2018-06-11] MEDS: DILTIAZEM HCL 120 MG CAP.SR.24H PO SCH ×2 (10:32→21:35)
--- NOTE | 2018-06-11 11:46 | PDOC PROGRESS REPORT ---
Subjective Progress Note for:: 06/11/18 Subjective:: Is currently doing well Patient still have a heart rates go up increase the Cardizem to 240 twice daily Patient's denied any chest pain to than any shortness of the breath As per discussed with the patient's cardiology suggest to switch to the p.o. Lasix and the patient's needs to be more ambulatory before discharge Reason For Visit: AFIB WITH RVR Physical Exam Vital Signs: Temp Pulse Resp BP Pulse Ox 98.1 F 58 L 17 125/80 96 06/11/18 08:15 06/11/18 08:15 06/11/18 08:15 06/11/18 08:15 06/11/18 08:15 Intake & Output 06/10/18 06/11/18 06/12/18 06:59 06:59 06:59 Intake Total 194 1236 Output Total 19995 Balance -57 -1639 Weight 102.1 kg 102.1 kg General appearance: PRESENT: no acute distress, well-developed, well-nourished Head exam: PRESENT: atraumatic, normocephalic Eye exam: PRESENT: conjunctiva pink, EOMI, PERRLA. ABSENT: scleral icterus Ear exam: PRESENT: normal external ear exam Mouth exam: PRESENT: moist, tongue midline Neck exam: PRESENT: full ROM. ABSENT: carotid bruit, JVD, lymphadenopathy, thyromegaly Respiratory exam: PRESENT: clear to auscultation patrice Cardiovascular exam: PRESENT: RRR. ABSENT: diastolic murmur, rubs, systolic murmur Pulses: PRESENT: normal dorsalis pedis pul, +2 pedal pulses bilateral Vascular exam: PRESENT: normal capillary refill GI/Abdominal exam: PRESENT: normal bowel sounds, soft. ABSENT: distended, guarding, mass, organolmegaly, rebound, tenderness Rectal exam: PRESENT: deferred Extremities exam: ABSENT: pedal edema Musculoskeletal exam: PRESENT: ambulatory Neurological exam: PRESENT: alert, awake, oriented to person, oriented to place, oriented to time, oriented to situation, CN II-XII grossly intact. ABSENT: motor sensory deficit Psychiatric exam: PRESENT: appropriate affect, normal mood. ABSENT: homicidal ideation, suicidal ideation Skin exam: PRESENT: dry, intact, warm. ABSENT: cyanosis, rash Results Laboratory Results: 06/11/18 05:10 06/11/18 05:10 06/11/18 06/11/18 05:10 05:10 WBC 10.2 RBC 4.07 Hgb 12.2 Hct 35.5 L MCV 87 MCH 29.9 MCHC 34.2 RDW 14.7 H Plt Count 314 Sodium 136.1 L Potassium 3.9 Chloride 100 Carbon Dioxide 23 Anion Gap 13 BUN 26 H Creatinine 0.98 Est GFR ( Amer) > 60 Est GFR (Non-Af Amer) 56 L Glucose 118 H Calcium 9.3 06/08/18 16:30 Clean Catch Midstream Urine Culture - Final Mixed Urogenital Lenora 06/08/18 06/08/18 06/08/18 02:19 09:00 09:00 Creatine Kinase 52 CK-MB (CK-2) 0.77 Troponin I < 0.012 < 0.012 NT-Pro-B Natriuret Pep 3760 H 06/08/18 06/08/18 06/08/18 15:07 15:07 21:20 Creatine Kinase 52 53 CK-MB (CK-2) 0.74 Troponin I < 0.012 NT-Pro-B Natriuret Pep 06/08/18 06/09/18 06/10/18 21:20 05:36 04:17 Creatine Kinase CK-MB (CK-2) 0.79 Troponin I < 0.012 NT-Pro-B Natriuret Pep 2000 H 1270 H 06/10/18 06/11/18 04:17 05:10 Creatine Kinase CK-MB (CK-2) Troponin I < 0.012 NT-Pro-B Natriuret Pep 1230 H Impressions: Abdomen Ultrasound 06/08/18 00:00 IMPRESSION: 1. Fatty enlarged liver. 2. Contracted gallbladder without stones or evidence of acute cholecystitis. Abdomen/Pelvis CT 06/08/18 00:00 IMPRESSION: 1. No acute or suspicious abdominopelvic abnormality. 2. Pulmonary findings as above. Basilar effusions and airspace disease/volume loss. Concerning for pneumonia and/or congestive failure. Chest X-Ray 06/08/18 02:00 IMPRESSION: Little change from the prior, as above copyright 2011 [employer]- All Rights Reserved Venous Doppler Study 06/08/18 03:38 IMPRESSION: NO EVIDENCE DVT OR SVT IN EITHER LEG. Assessment & Plan - Diagnosis (1) Atrial fibrillation with RVR Is this a current diagnosis for this admission?: Yes Plan: Increase the Cardizem to 240 mg p.o. twice a day (2) Chest pain Qualifiers: Chest pain type: unspecified Qualified Code(s): R07.9 - Chest pain, unspecified Is this a current diagnosis for this admission?: Yes (3) Congestive heart failure Qualifiers: Heart failure type: diastolic Heart failure chronicity: acute Qualified Code(s): I50.31 - Acute diastolic (congestive) heart failure Is this a current diagnosis for this admission?: Yes Plan: IV Lasix for another 24 hours and then switch to the p.o. Lasix (4) Abnormal LFTs Is this a current diagnosis for this admission?: Yes (5) Hypertension Qualifiers: Hypertension type: essential hypertension Qualified Code(s): I10 - Essential (primary) hypertension Is this a current diagnosis for this admission?: Yes (6) Hypothyroidism Qualifiers: Hypothyroidism type: unspecified Qualified Code(s): E03.9 - Hypothyroidism, unspecified Is this a current diagnosis for this admission?: Yes (7) Type 2 diabetes mellitus Qualifiers: Diabetes mellitus halfway insulin use: without halfway use Diabetes mellitus complication status: with unspecified complications Qualified Code(s): E11.8 - Type 2 diabetes mellitus with unspecified complications Is this a current diagnosis for this admission?: Yes Plan: Continues a sliding scale (8) Leukocytosis Qualifiers: Leukocytosis type: unspecified Qualified Code(s): D72.829 - Elevated white blood cell count, unspecified Is this a current diagnosis for this admission?: Yes - Time Time Spent with patient: 15-24 minutes Medications reviewed and adjusted accordingly: Yes Anticipated discharge: Other Within: Other - Plan Summary Plan Summary: Continues current medication
[2018-06-12] MEDS: LEVOTHYROXINE SODIUM 0.1 MG TABLET PO SCH (05:05)
[2018-06-12 07:12] LABS: ANION GAP 12 (5-19); BLOOD UREA NITROGEN 22 mg/dL (7-20); CALCIUM 9.2 mg/dL (8.4-10.2); CARBON DIOXIDE 23 mmol/L (22-30); CHLORIDE 99 mmol/L (98-107); GLUCOSE 123 mg/dL (75-110); POTASSIUM 3.9 mmol/L (3.6-5.0); SODIUM 133.9 mmol/L (137-145)
[2018-06-12] MEDS: DOCUSATE SODIUM 100 MG CAPSULE PO SCH ×2 (10:25→17:25)
[2018-06-12] MEDS: APIXABAN 5 MG TABLET PO SCH ×2 (10:25→17:25)
[2018-06-12] MEDS: METFORMIN HCL 500 MG TABLET PO SCH (10:25)
[2018-06-12] MEDS: FAMOTIDINE 20 MG TABLET PO SCH ×2 (10:25→22:02)
[2018-06-12] MEDS: FUROSEMIDE 40 MG TABLET PO SCH (10:25)
[2018-06-12] MEDS: BUSPIRONE HCL 10 MG TABLET PO SCH ×2 (10:26→22:00)
[2018-06-12] MEDS: METOPROLOL TARTRATE 25 MG TABLET PO SCH ×2 (10:26→22:04)
[2018-06-12] MEDS: DILTIAZEM HCL 120 MG CAP.SR.24H PO SCH ×2 (10:26→22:02)
--- NOTE | 2018-06-12 12:29 | PDOC PROGRESS REPORT ---
Subjective Progress Note for:: 06/12/18 Subjective:: Patient is currently doing fair Patient is complaining of anxiety issue Patient's heart rate is currently stable but patient still walk heart rate goes up to 120 range Denied any chest pain denied any shortness of the breath Reason For Visit: AFIB WITH RVR Physical Exam Vital Signs: Temp Pulse Resp BP Pulse Ox 97.3 F 48 L 18 99/64 L 96 06/12/18 07:59 06/12/18 07:59 06/12/18 07:59 06/12/18 07:59 06/12/18 07:59 Intake & Output 06/11/18 06/12/18 06/13/18 06:59 06:59 06:59 Intake Total 1236 1178 Output Total 2875 1800 Balance -1639 -622 Weight 102.1 kg 102.1 kg General appearance: PRESENT: no acute distress, well-developed, well-nourished Head exam: PRESENT: atraumatic, normocephalic Eye exam: PRESENT: conjunctiva pink, EOMI, PERRLA. ABSENT: scleral icterus Ear exam: PRESENT: normal external ear exam Mouth exam: PRESENT: moist, tongue midline Neck exam: PRESENT: full ROM. ABSENT: carotid bruit, JVD, lymphadenopathy, thyromegaly Respiratory exam: PRESENT: clear to auscultation patrice Cardiovascular exam: PRESENT: RRR. ABSENT: diastolic murmur, rubs, systolic murmur Pulses: PRESENT: normal dorsalis pedis pul, +2 pedal pulses bilateral Vascular exam: PRESENT: normal capillary refill GI/Abdominal exam: PRESENT: normal bowel sounds, soft. ABSENT: distended, guarding, mass, organolmegaly, rebound, tenderness Rectal exam: PRESENT: deferred Extremities exam: ABSENT: pedal edema Musculoskeletal exam: PRESENT: ambulatory Neurological exam: PRESENT: alert, awake, oriented to person, oriented to place, oriented to time, oriented to situation, CN II-XII grossly intact. ABSENT: motor sensory deficit Psychiatric exam: PRESENT: appropriate affect, normal mood. ABSENT: homicidal ideation, suicidal ideation Skin exam: PRESENT: dry, intact, warm. ABSENT: cyanosis, rash Results Laboratory Results: 06/11/18 05:10 06/12/18 06:11 06/12/18 06:11 Sodium 133.9 L Potassium 3.9 Chloride 99 Carbon Dioxide 23 Anion Gap 12 BUN 22 H Creatinine 0.92 Est GFR ( Amer) > 60 Est GFR (Non-Af Amer) > 60 Glucose 123 H Calcium 9.2 06/08/18 06/08/18 06/08/18 02:19 09:00 09:00 Creatine Kinase 52 CK-MB (CK-2) 0.77 Troponin I < 0.012 < 0.012 NT-Pro-B Natriuret Pep 3760 H 06/08/18 06/08/18 06/08/18 15:07 15:07 21:20 Creatine Kinase 52 53 CK-MB (CK-2) 0.74 Troponin I < 0.012 NT-Pro-B Natriuret Pep 06/08/18 06/09/18 06/10/18 21:20 05:36 04:17 Creatine Kinase CK-MB (CK-2) 0.79 Troponin I < 0.012 NT-Pro-B Natriuret Pep 2000 H 1270 H 06/10/18 06/11/18 04:17 05:10 Creatine Kinase CK-MB (CK-2) Troponin I < 0.012 NT-Pro-B Natriuret Pep 1230 H Impressions: Abdomen Ultrasound 06/08/18 00:00 IMPRESSION: 1. Fatty enlarged liver. 2. Contracted gallbladder without stones or evidence of acute cholecystitis. Abdomen/Pelvis CT 06/08/18 00:00 IMPRESSION: 1. No acute or suspicious abdominopelvic abnormality. 2. Pulmonary findings as above. Basilar effusions and airspace disease/volume loss. Concerning for pneumonia and/or congestive failure. Chest X-Ray 06/08/18 02:00 IMPRESSION: Little change from the prior, as above copyright 2011 [employer]- All Rights Reserved Venous Doppler Study 06/08/18 03:38 IMPRESSION: NO EVIDENCE DVT OR SVT IN EITHER LEG. Assessment & Plan - Diagnosis (1) Atrial fibrillation with RVR Is this a current diagnosis for this admission?: Yes Plan: Increase the Cardizem to 240 mg p.o. twice a day (2) Chest pain Qualifiers: Chest pain type: unspecified Qualified Code(s): R07.9 - Chest pain, unspecified Is this a current diagnosis for this admission?: Yes Plan: Is likely from the atrial fibrillation's patient's initial 2 cardiac enzyme is negative recent stress is also negative's will consult the cardiology Patient's VQ scan is also negative and the ultrasound of the lower extremities also negative (3) Congestive heart failure Qualifiers: Heart failure type: diastolic Heart failure chronicity: acute Qualified Code(s): I50.31 - Acute diastolic (congestive) heart failure Is this a current diagnosis for this admission?: Yes Plan: Lasix 40 mg p.o. daily (4) Abnormal LFTs Is this a current diagnosis for this admission?: Yes (5) Hypertension Qualifiers: Hypertension type: essential hypertension Qualified Code(s): I10 - Essential (primary) hypertension Is this a current diagnosis for this admission?: Yes (6) Hypothyroidism Qualifiers: Hypothyroidism type: unspecified Qualified Code(s): E03.9 - Hypothyroidism, unspecified Is this a current diagnosis for this admission?: Yes (7) Type 2 diabetes mellitus Qualifiers: Diabetes mellitus terminal make up operator insulin use: without care home use Diabetes mellitus complication status: with unspecified complications Qualified Code(s): E11.8 - Type 2 diabetes mellitus with unspecified complications Is this a current diagnosis for this admission?: Yes Plan: Continues a sliding scale (8) Leukocytosis Qualifiers: Leukocytosis type: unspecified Qualified Code(s): D72.829 - Elevated white blood cell count, unspecified Is this a current diagnosis for this admission?: Yes (9) Anxiety Is this a current diagnosis for this admission?: Yes Plan: We will start the patient on the BuSpar - Time Time Spent with patient: 15-24 minutes Medications reviewed and adjusted accordingly: Yes Anticipated discharge: Home Within: Other - Plan Summary Plan Summary: Continue current medications will await further cardiology further evaluations
[2018-06-12 13:15] LABS: ALANINE AMINOTRANSFERASE 121 U/L (9-52); ALBUMIN 3.8 g/dL (3.5-5.0); ALKALINE PHOSPHATASE 102 U/L (38-126); ASPARTATE AMINO TRANSFERASE 42 U/L (14-36); BILIRUBIN,DIRECT 0.3 mg/dL (0.0-0.4); BILIRUBIN,TOTAL 1.1 mg/dL (0.2-1.3)
[2018-06-12] MEDS ORDERED: RANOLAZINE 500 MG TAB.SR.12H PO SCH (22:00)
[2018-06-12] MEDS: RANOLAZINE 500 MG TAB.SR.12H PO SCH (22:01)
--- NOTE | 2018-06-12 22:19 | PDOC PROGRESS REPORT ---
Subjective Progress Note for:: 06/12/18 Subjective:: Patient seems to be doing better with gradual improvement. Pt is denying any chest arm or neck discomfort. Patient denying any PND, orthopnea. Patient denied any sustained palpitations, dizziness, syncope, near syncope. Patient denying any fever chills. Patient denying any other significant discomfort. Patient is maintaining atrial flutter/fibrillation however on exertion patient heart rate becomes uncontrolled. Review of systems: Rest review of systems negative. Medications: Medications have been reviewed. Reason For Visit: AFIB WITH RVR Physical Exam Vital Signs: Temp Pulse Resp BP Pulse Ox 98.1 F 36 L 18 126/87 H 94 06/12/18 15:09 06/12/18 15:09 06/12/18 15:09 06/12/18 15:09 06/12/18 15:09 Intake & Output 06/11/18 06/12/18 06/13/18 06:59 06:59 06:59 Intake Total 1236 1178 1137 Output Total 2875 1800 1600 Balance -1639 -622 -463 Weight 102.1 kg 102.1 kg Exam: GENERAL: well-nourished and in no acute distress. Alert and oriented x3 HEAD: Atraumatic, normocephalic. EYES: MANAS, sclera anicteric, conjunctiva are normal. ENT: Moist mucous membranes. No oral ulcerations or bleeding gums noted. No obvious ear, nose or throat abnormalities noted. NECK: supple without lymphadenopathy. Trachea is central. No cervical or axillary lymphadenopathy noted. Carotids are 2+, JVD WNL LUNGS: Breath sounds clear bilaterally. No wheezes rales or rhonchi noted. No significant dullness noted on percussion. CHEST: Palpation of the chest wall shows no significant chest wall tenderness. 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 ABDOMEN: Soft, no significant tenderness appreciated, normoactive bowel sounds. No guarding, no rebound. No rigidity noted . No masses appreciated. EXTREMITIES: Pedal pulses are 1-2+, no calf tenderness noted. No clubbing or cyanosis. negative pedal edema noted NEUROLOGICAL: Focused neurological exam showed no significant neurologic deficit. Normal speech, no focal weakness appreciated. PSYCH: Normal mood, normal affect. Judgment and insight within normal limits. SKIN: No significant ecchymosis, skin is noted to be warm. MUSCULOSKELETAL EXAM: No significant acute joint swelling noted. Results Laboratory Results: 06/11/18 05:10 06/12/18 06:11 06/12/18 06/12/18 06:11 06:11 Sodium 133.9 L Potassium 3.9 Chloride 99 Carbon Dioxide 23 Anion Gap 12 BUN 22 H Creatinine 0.92 Est GFR ( Amer) > 60 Est GFR (Non-Af Amer) > 60 Glucose 123 H Calcium 9.2 Total Bilirubin 1.1 AST 42 H ALT 121 H Alkaline Phosphatase 102 Total Protein 7.0 Albumin 3.8 06/08/18 06/08/18 06/08/18 02:19 09:00 09:00 Creatine Kinase 52 CK-MB (CK-2) 0.77 Troponin I < 0.012 < 0.012 NT-Pro-B Natriuret Pep 3760 H 06/08/18 06/08/18 06/08/18 15:07 15:07 21:20 Creatine Kinase 52 53 CK-MB (CK-2) 0.74 Troponin I < 0.012 NT-Pro-B Natriuret Pep 06/08/18 06/09/18 06/10/18 21:20 05:36 04:17 Creatine Kinase CK-MB (CK-2) 0.79 Troponin I < 0.012 NT-Pro-B Natriuret Pep 2000 H 1270 H 06/10/18 06/11/18 04:17 05:10 Creatine Kinase CK-MB (CK-2) Troponin I < 0.012 NT-Pro-B Natriuret Pep 1230 H EKG Comments: Atrial flutter with intermittent rapid ventricular response. Impressions: Abdomen Ultrasound 06/08/18 00:00 IMPRESSION: 1. Fatty enlarged liver. 2. Contracted gallbladder without stones or evidence of acute cholecystitis. Abdomen/Pelvis CT 06/08/18 00:00 IMPRESSION: 1. No acute or suspicious abdominopelvic abnormality. 2. Pulmonary findings as above. Basilar effusions and airspace disease/volume loss. Concerning for pneumonia and/or congestive failure. Chest X-Ray 06/08/18 02:00 IMPRESSION: Little change from the prior, as above copyright 2011 [employer]- All Rights Reserved Venous Doppler Study 06/08/18 03:38 IMPRESSION: NO EVIDENCE DVT OR SVT IN EITHER LEG. Assessment & Plan - Diagnosis (1) Atrial fibrillation with RVR Is this a current diagnosis for this admission?: Yes (2) Congestive heart failure Qualifiers: Heart failure type: diastolic Heart failure chronicity: acute Qualified Code(s): I50.31 - Acute diastolic (congestive) heart failure Is this a current diagnosis for this admission?: Yes (3) Hypertension Qualifiers: Hypertension type: essential hypertension Qualified Code(s): I10 - Essential (primary) hypertension Is this a current diagnosis for this admission?: Yes (4) Type 2 diabetes mellitus Qualifiers: Diabetes mellitus detention insulin use: without detention use Diabetes mellitus complication status: with unspecified complications Qualified Code(s ): E11.8 - Type 2 diabetes mellitus with unspecified complications Is this a current diagnosis for this admission?: Yes (5) Abnormal LFTs Is this a current diagnosis for this admission?: Yes - Notes Notes: Patient continues with difficult to control heart rate response. Have added Ranexa, which might add to rate control and might also help with any ischemia as cause of her symptom of dyspnea and possibly may also help with better diabetes control. Have also increased metoprolol to 12.5 mg p.o. every 8. Have ordered chest x-ray PA and lateral, 2D echocardiogram, BNP level, chemistry panel and lipid panel. Patient was ambulated in the hallway, she was noted to become short of breath but much better than before. She was also noted to have heart rate in the 120s mostly during ambulation. - Time Time with patient: Greater than 35 minutes - CODE STATUS was discussed, patient remains full code. Surrogate decision-maker unchanged. Multiple medical problems were addressed. More than 50% of the time spent coordinating care, discussing management plans with involved caregivers. Management plans discussed with involved personnels. Medical decision making was of moderate to high complexity, patient's has multiple comorbidities. Medications reviewed and adjusted accordingly: Yes
[2018-06-12] MEDS ORDERED: INSULIN LISPRO 100 UNIT/ML 3 ML VIAL SUBCUT PRN (23:00)
[2018-06-12] MEDS ORDERED: DEXTROSE 40% GEL 15 GM TUBE X 2 PO PRN (23:00)
[2018-06-12] MEDS ORDERED: GLUCAGON,HUMAN RECOMB 1 MG INJ IM PRN (23:00)
[2018-06-12] MEDS ORDERED: DEXTROSE 40% GEL 15 GM TUBE PO PRN (23:00)
[2018-06-12] MEDS ORDERED: DEXTROSE 50%-WATER SYRINGE 12.5 GM/25 ML DOSE IV PRN (23:00)
[2018-06-12] MEDS ORDERED: DEXTROSE 50%-WATER SYRINGE 25 GM/50 ML DOSE IV PRN (23:00)
[2018-06-13] MEDS: LEVOTHYROXINE SODIUM 0.1 MG TABLET PO SCH (05:17)
[2018-06-13] MEDS: METOPROLOL TARTRATE 25 MG TABLET PO SCH (05:27)
[2018-06-13 05:53] LABS: ABSOLUTE BASOPHILS # (AUTO) 0.1 10^3/uL (0.0-0.2); ABSOLUTE EOSINOPHILS # (AUTO) 0.2 10^3/uL (0.0-0.6); ABSOLUTE LYMPHOCYTES (AUTO) 2.6 10^3/uL (0.5-4.7); ABSOLUTE MONOCYTES (AUTO) 0.6 10^3/uL (0.1-1.4); ABSOLUTE NEUT (AUTO) 8.1 10^3/uL (1.7-8.2); BASOPHILS % (AUTO) 0.9 % (0-2); EOSINOPHILS % (AUTO) 1.4 % (0-6); HEMATOCRIT 35.1 % (36.0-47.0); LYMPHOCYTES % (AUTO) 22.2 % (13-45); MEAN CORPUSCULAR HEMOGLOBIN 29.8 pg (27.0-33.4); MEAN CORPUSCULAR HGB CONC 34.3 g/dL (32.0-36.0); MEAN CORPUSCULAR VOLUME 87 fl (80-97); PLATELET COUNT 312 10^3/uL (150-450); RED BLOOD COUNT 4.05 10^6/uL (3.72-5.28); RED CELL DISTRIBUTION WIDTH 15.1 % (11.5-14.0); SEGMENTED NEUTROPHILS % (AUTO) 70.5 % (42-78); TOTAL CELLS COUNTED % (AUTO) 100 %; WHITE BLOOD COUNT 11.5 10^3/uL (4.0-10.5)
[2018-06-13 06:19] LABS: ALANINE AMINOTRANSFERASE 85 U/L (9-52); ALBUMIN 3.9 g/dL (3.5-5.0); ALKALINE PHOSPHATASE 105 U/L (38-126); ANION GAP 11 (5-19); ASPARTATE AMINO TRANSFERASE 36 U/L (14-36); BILIRUBIN,DIRECT 0.5 mg/dL (0.0-0.4); BILIRUBIN,TOTAL 1.6 mg/dL (0.2-1.3); BLOOD UREA NITROGEN 20 mg/dL (7-20); CALCIUM 9.3 mg/dL (8.4-10.2); CARBON DIOXIDE 24 mmol/L (22-30); CHLORIDE 98 mmol/L (98-107); GLUCOSE 117 mg/dL (75-110); POTASSIUM 3.9 mmol/L (3.6-5.0); SODIUM 133.2 mmol/L (137-145); TOTAL PROTEIN 6.9 g/dL (6.3-8.2); TRIGLYCERIDES 99 mg/dL (<150)
[2018-06-13 06:30] LABS: DIRECT LDL 78 mg/dL (<100)
[2018-06-13] MEDS: APIXABAN 5 MG TABLET PO SCH (09:53)
[2018-06-13] MEDS: FAMOTIDINE 20 MG TABLET PO SCH (09:59)
[2018-06-13] MEDS: BUSPIRONE HCL 10 MG TABLET PO SCH (09:59)
[2018-06-13] MEDS: METFORMIN HCL 500 MG TABLET PO SCH (09:59)
[2018-06-13] MEDS: DILTIAZEM HCL 120 MG CAP.SR.24H PO SCH (09:59)
[2018-06-13] MEDS: RANOLAZINE 500 MG TAB.SR.12H PO SCH (09:59)
[2018-06-13] MEDS: FUROSEMIDE 40 MG TABLET PO SCH (10:00)
[2018-06-13] MEDS: DOCUSATE SODIUM 100 MG CAPSULE PO SCH (10:00)
--- NOTE | 2018-06-13 11:16 | PDOC TRANSFER SUMMARY ---
General Admission Date/PCP: 06/08/18 03:47 ASHELY WEISS MD Transfer Date: 06/13/18 Accepting Facility: [facility] - Transfer Diagnosis (1) Atrial fibrillation with RVR Is this a current diagnosis for this admission?: Yes Diagnosis Summary: Patient's still have a heart rate is not under control and patients transferred to the count includes the [facility] for further evaluations (2) Chest pain Is this a current diagnosis for this admission?: Yes (3) Congestive heart failure Is this a current diagnosis for this admission?: Yes Diagnosis Summary: Continues to Lasix 40 mg p.o. daily (4) Abnormal LFTs Is this a current diagnosis for this admission?: Yes Diagnosis Summary: Currently all getting better with the negative ultrasound negative abdominal CTs most likely from the heart failure (5) Hypertension Is this a current diagnosis for this admission?: Yes Diagnosis Summary: Currently all stable (6) Hypothyroidism Is this a current diagnosis for this admission?: Yes (7) Type 2 diabetes mellitus Is this a current diagnosis for this admission?: Yes (8) Leukocytosis Is this a current diagnosis for this admission?: Yes (9) Anxiety Is this a current diagnosis for this admission?: Yes - Transfer Medications Home Medications: Cetirizine HCl [Zyrtec 10 mg Tablet] 10 mg PO DAILY 06/08/18 Ezetimibe [Zetia 10 mg Tablet] 10 mg PO DAILY 06/08/18 Levothyroxine Sodium [Synthroid 0.1 mg Tablet] 0.1 mg PO Q6AM 06/08/18 Lisinopril [Prinivil] 20 mg PO DAILY 06/08/18 Metformin HCl [Glucophage 500 mg Tablet] 500 mg PO DAILY 06/08/18 Metoprolol Tartrate [Lopressor 25 mg Tablet] 25 mg PO Q12 06/08/18 Transfer Medications: Current Medications Acetaminophen (Tylenol 325 Mg Tablet) 650 mg PO Q4HP PRN PRN Reason: FOR PAIN OR TEMP Stop: 07/08/18 03:39 Apixaban (Eliquis 5 Mg Tablet) 5 mg PO BID [facility] Stop: 07/08/18 09:59 Last Admin: 06/13/18 09:53 Dose: Not Given Documented by: Buspirone HCl (Buspar 10 Mg Tablet) 5 mg PO Q12 [facility] Stop: 07/12/18 09:59 Last Admin: 06/13/18 09:59 Dose: 5 mg Documented by: Dextrose (Dextrose Inj 50% Syringe (25 Gm/50 Ml)) 12.5 gm IV PRN PRN; Protocol PRN Reason: FOR BG 50-69 IN ALERT PATIENT Stop: 07/12/18 22:59 Dextrose (Dextrose Inj 50% Syringe (25 Gm/50 Ml)) 25 gm IV PRN PRN; Protocol Stop: 07/12/18 22:59 Diltiazem HCl (Cardizem Cd 120 Mg Capsule) 240 mg PO Q12 [facility] Stop: 07/10/18 09:59 Last Admin: 06/13/18 09:59 Dose: 240 mg Documented by: Docusate Sodium (Colace 100 Mg Capsule) 100 mg PO BID [facility] Stop: 07/09/18 10:59 Last Admin: 06/13/18 10:00 Dose: 100 mg Documented by: Famotidine (Pepcid 20 Mg Tablet) 20 mg PO Q12 [facility] Stop: 07/08/18 09:59 Last Admin: 06/13/18 09:59 Dose: 20 mg Documented by: Furosemide (Lasix 40 Mg Tablet) 40 mg PO DAILY [facility] Stop: 07/10/18 12:59 Last Admin: 06/13/18 10:00 Dose: 40 mg Documented by: Glucagon (Glucagen Inj 1 Mg Vial) 1 mg IM PRN PRN; Protocol PRN Reason: EVALUATE FOR BG < 70 Stop: 07/12/18 22:59 Glucose (Glutose 40% Gel 15 Gm Tube) 15 gm PO PRN PRN; Protocol PRN Reason: FOR BG 50-69 IN ALERT PATIENT Stop: 07/12/18 22:59 Glucose (Glutose 40% Gel 15 Gm Tube) 30 gm PO PRN PRN; Protocol PRN Reason: FOR BG < 50 IN ALERT PATIENT Stop: 07/12/18 22:59 Insulin Human Lispro (Humalog Insulin 100 Unit/1 Ml 3 Ml Vial) 0 - 12 unit SUBCUT ACHSP PRN; Protocol PRN Reason: PER PROTOCOL Stop: 07/12/18 22:59 Levothyroxine Sodium (Synthroid 0.1 Mg Tablet) 0.1 mg PO Q6AM [facility] Stop: 07/08/18 13:29 Last Admin: 06/13/18 05:17 Dose: 0.1 mg Documented by: Metformin HCl (Glucophage 500 Mg Tablet) 500 mg PO DAILY [facility] Stop: 07/11/18 09:59 Last Admin: 06/13/18 09:59 Dose: 500 mg Documented by: Metoprolol Tartrate (Lopressor 25 Mg Tablet) 12.5 mg PO Q8 [facility] Stop: 07/10/18 16:14 Last Admin: 06/13/18 05:27 Dose: 12.5 mg Documented by: Polyethylene Glycol (Miralax Powder 17 Gm/Packet) 17 gm PO DAILYP PRN PRN Reason: CONSTIPATION Stop: 07/09/18 10:24 Ranolazine (Ranexa 500 Mg Tab.Sr) 500 mg PO Q12 [facility] Stop: 07/12/18 21:59 Last Admin: 06/13/18 09:59 Dose: 500 mg Documented by: - Allergies Allergies/Adverse Reactions: iodine [Iodine] Allergy (Unknown, Verified 11/10/14 08:28) unsure Tuberculin,Ppd,Multi-Puncture [From Tuberculin PPD Miryam Test] Adverse Reaction (Intermediate, Verified 11/10/14 08:27) area swelled up had positive reaction - Diet/Activity Discharge Diet: Cardiac, Diabetic Hospital Course Hospital Course: This is a 72-year-old female presenting the emergency department with the shortness of the breath and atrial fibrillation's with a new onset with rapid ventricular response Patient had a VQ scan and ultrasound of the lower extremity was negative for DVT Patient seen by Dr. Birch general passenger agent there was recently a stress test and echocardiogram done in the office was all stable Patient was put on a Cardizem 240 twice daily and also metoprolol Patient still feels the heart rate goes up especially patients move Patient also has some anxiety put him on BuSpar 5 mg Patient is otherwise denied any chest pain denied any shortness of the breath Patient's all cultures negatives Physical Exam Vital Signs: Temp Pulse Resp BP Pulse Ox 97.4 F 102 H 17 117/80 95 06/13/18 07:23 06/13/18 07:23 06/13/18 07:23 06/13/18 07:23 06/13/18 07:23 Intake & Output 06/12/18 06/13/18 06/14/18 06:59 06:59 06:59 Intake Total 1178 1137 Output Total 1800 1600 Balance -622 -463 Weight 102.1 kg 103.7 kg General appearance: PRESENT: no acute distress, well-developed, well-nourished Head exam: PRESENT: atraumatic, normocephalic Eye exam: PRESENT: conjunctiva pink, EOMI, PERRLA. ABSENT: scleral icterus Ear exam: PRESENT: normal external ear exam Mouth exam: PRESENT: moist, tongue midline Neck exam: ABSENT: carotid bruit, JVD, lymphadenopathy, thyromegaly Respiratory exam: PRESENT: clear to auscultation patrice. ABSENT: rales, rhonchi, wheezes Cardiovascular exam: PRESENT: RRR. ABSENT: diastolic murmur, rubs, systolic murmur Pulses: PRESENT: normal dorsalis pedis pul Vascular exam: PRESENT: normal capillary refill GI/Abdominal exam: PRESENT: normal bowel sounds, soft. ABSENT: distended, guarding, mass, organolmegaly, rebound, tenderness Rectal exam: PRESENT: deferred Extremities exam: PRESENT: full ROM. ABSENT: calf tenderness, clubbing, pedal edema Neurological exam: PRESENT: alert, awake, oriented to person, oriented to place, oriented to time, oriented to situation, CN II-XII grossly intact. ABSENT: motor sensory deficit Psychiatric exam: PRESENT: appropriate affect, normal mood. ABSENT: homicidal ideation, suicidal ideation Skin exam: PRESENT: dry, intact, warm. ABSENT: cyanosis, rash Results Laboratory Results: 06/13/18 05:05 06/13/18 05:05 06/12/18 06/13/18 06/13/18 06:11 05:05 05:05 WBC 11.5 H RBC 4.05 Hgb 12.0 Hct 35.1 L MCV 87 MCH 29.8 MCHC 34.3 RDW 15.1 H Plt Count 312 Seg Neutrophils % 70.5 Lymphocytes % 22.2 Monocytes % 5.0 Eosinophils % 1.4 Basophils % 0.9 Absolute Neutrophils 8.1 Absolute Lymphocytes 2.6 Absolute Monocytes 0.6 Absolute Eosinophils 0.2 Absolute Basophils 0.1 Sodium 133.2 L Potassium 3.9 Chloride 98 Carbon Dioxide 24 Anion Gap 11 BUN 20 Creatinine 0.81 Est GFR ( Amer) > 60 Est GFR (Non-Af Amer) > 60 Glucose 117 H Calcium 9.3 Total Bilirubin 1.1 1.6 H AST 42 H 36 ALT 121 H 85 H Alkaline Phosphatase 102 105 Total Protein 7.0 6.9 Albumin 3.8 3.9 Triglycerides 99 Cholesterol 153.50 LDL Cholesterol Direct 78 VLDL Cholesterol 20.0 HDL Cholesterol 55 06/08/18 06/08/18 06/08/18 02:19 09:00 09:00 Creatine Kinase 52 CK-MB (CK-2) 0.77 Troponin I < 0.012 < 0.012 NT-Pro-B Natriuret Pep 3760 H 06/08/18 06/08/18 06/08/18 15:07 15:07 21:20 Creatine Kinase 52 53 CK-MB (CK-2) 0.74 Troponin I < 0.012 NT-Pro-B Natriuret Pep 06/08/18 06/09/18 06/10/18 21:20 05:36 04:17 Creatine Kinase CK-MB (CK-2) 0.79 Troponin I < 0.012 NT-Pro-B Natriuret Pep 2000 H 1270 H 06/10/18 06/11/18 06/13/18 04:17 05:10 05:05 Creatine Kinase CK-MB (CK-2) Troponin I < 0.012 NT-Pro-B Natriuret Pep 1230 H 1410 H Impressions: Abdomen Ultrasound 06/08/18 00:00 IMPRESSION: 1. Fatty enlarged liver. 2. Contracted gallbladder without stones or evidence of acute cholecystitis. Abdomen/Pelvis CT 06/08/18 00:00 IMPRESSION: 1. No acute or suspicious abdominopelvic abnormality. 2. Pulmonary findings as above. Basilar effusions and airspace disease/volume loss. Concerning for pneumonia and/or congestive failure. Chest X-Ray 06/08/18 02:00 IMPRESSION: Little change from the prior, as above copyright 2011 [employer]- All Rights Reserved Venous Doppler Study 06/08/18 03:38 IMPRESSION: NO EVIDENCE DVT OR SVT IN EITHER LEG. Plan Time Spent: Greater than 30 Minutes - Is transferred to Dr. Mendiola for possible ablation
--- NOTE | 2018-06-13 11:43 | RADIOLOGY REPORT (SQ) ---
EXAM DESCRIPTION: CT CHEST WITHOUT COMPLETED DATE/TIME: 06/13/2018 10:18 am REASON FOR STUDY: sob difficulty breathing COMPARISON: Chest film 06/08/2018 CT abdomen pelvis 06/08/2018 Abdominal ultrasound 06/08/2018 TECHNIQUE: CT scan performed of the chest without intravenous contrast. Images reviewed with lung, soft tissue and bone windows. Reconstructed coronal and sagittal MPR images reviewed. All images st ored on PACS. All CT scanners at this facility use dose modulation, iterative reconstruction, and/or weight based d osing when appropriate to reduce radiation dose to as low as reasonably achievable (ALARA). [facility]: Dose Right [facility]: CareDose [facility]: Dose Right [facility]: Teradose 4D [facility]: Elementum RADIATION DOSE: CT Rad equipment meets quality standard of care and radiation dose reduction techniq ues were employed. CTDIvol: 18.2 mGy. DLP: 646 mGy-cm. mGy. LIMITATIONS: No technical limitations. FINDINGS: LUNGS AND PLEURA: Small bilateral pleural effusions are present right greater than left. There is alveolar and interstitial edema throughout both lungs. Patchy consolidation at both lung bases likely atelectasis. Pneumonia could not entirely be excluded . Airways are patent. HILAR AND MEDIASTINAL STRUCTURES: Multiple small 1 to 2 cm hilar and mediastinal lymph nodes, abnorma l but nonspecific. Small hiatal hernia HEART AND VASCULAR STRUCTURES: No aneurysm. No pericardial effusion. Moderate diffuse coronary ivis ry calcification. Mild cardiomegaly. UPPER ABDOMEN: No significant findings. Limited exam. THYROID AND OTHER SOFT TISSUES: No masses. No adenopathy. BONES: No significant finding. HARDWARE: None in the chest. OTHER: No other significant findings. IMPRESSION: Fluid overload or congestive failure, with alveolar and interstitial edema and small patrice ateral pleural effusions TECHNICAL DOCUMENTATION: JOB ID: [id number] Quality ID # [id number]: Final reports with documentation of one or more dose reduction techniques (e.g., Au tomated exposure control, adjustment of the mA and/or kV according to patient size, use of iterative reconstruction technique) 2010 [employer]- All Rights Reserved Reading location - IP/workstation name: [email or web address]
[2018-06-13 12:23] VITALS: BP 114/90
[2018-06-13] MEDS ORDERED: CEPHALEXIN 500 MG CAPSULE PO SCH (14:00)
[2018-06-13] MEDS ORDERED: FUROSEMIDE 40 MG TABLET PO SCH (18:00)
--- NOTE | 2018-06-13 21:15 | XCELERA REPORT ---
[address] [address] Transthoracic Echocardiogram Report Name: ALMA BO Age: 72 yrs Gender: Female : 1945 Patient Status: Inpatient Patient Location: [address] [place] [address] Study Date: 06/13/2018 10:30 AM Height: 59 in Weight: 225 lb BSA: 1.9 m2 Procedure: A complete two-dimensional transthoracic echocardiogram was performed (2D, M-mode, spectral and color flow Doppler). The study was technically difficult with many images being suboptimal in quality. Reason For Study: congestive heart failure Ordering Physician: FLYNN FERRO Performed By: Damaris Alfredo Interpretation Summary The left ventricular ejection fraction is normal. There is mild concentric left ventricular hypertrophy. LV diastolic function could not be adequately assessed due to atrial fibrilation. The left ventricle is grossly normal size. Wall motion cannot be accurately commented on, but no definite regional wall motion abnormalities noted. The right ventricle is mildly dilated. Right ventricular function cannot be assessed due to poor image quality. The left atrium is mildly dilated. The right atrium is mildly dilated. There is no mitral valve stenosis. There is a mild to moderate amount of mitral regurgitation There is no aortic valve stenosis There is a mild amount of aortic regurgitation The aortic valve opens well. There is a mild amount of tricuspid regurgitation Best estimated RVSP is approximately 60-65 mm/Hg. The pulmonic valve is not well visualized. The aortic root is not well visualized but is probably normal size. The inferior vena cava was not well visualized There is no pericardial effusion. MMode/2D Measurements & Calculations RVDd: 2.7 cm LVIDd: 4.0 cm FS: 39.7 % Ao root diam: 1.8 cm IVSd: 0.90 cm LVIDs: 2.4 cm EDV(Teich): 68.5 ml Ao root area: 2.5 cm2 LVPWd: 0.87 cm ESV(Teich): 20.0 ml LA dimension: 3.4 cm EF(Teich): 70.8 % Doppler Measurements & Calculations MV E max sophie: MV P1/2t max sophie: Ao V2 max: LV V1 max P.9 cm/sec 200.2 cm/sec 119.0 cm/sec 4.8 mmHg MV A max sophie: MV P1/2t: 47.9 msec Ao max P.7 mmHgLV V1 max: 130.3 cm/sec MVA(P1/2t): 4.6 cm2 109.7 cm/sec MV E/A: 1.5 MV dec slope: 1223 cm/sec2 MV dec time: 0.17 sec PA V2 max: TR max sophie: MV P1/2t-pr_phl: 76.0 cm/sec 378.7 cm/sec 47.9 msec PA max P.3 mmHgTR max P.4 mmHg Left Ventricle The left ventricle is grossly normal size. There is mild concentric left ventricular hypertrophy. The left ventricular ejection fraction is normal. LV diastolic function could not be adequately assessed due to atrial fibrilation. Wall motion cannot be accurately commented on, but no definite regional wall motion abnormalities noted. Right Ventricle The right ventricle is mildly dilated. There is normal right ventricular wall thickness. Right ventricular function cannot be assessed due to poor image quality. Atria The right atrium is mildly dilated. The left atrium is mildly dilated. Interarterial septum not well visualized and not well dopplered. Cannot comment on ASD/PFO presence. Mitral Valve There is mild mitral leaflet calcification. There is mild mitral annular calcification. There is no mitral valve stenosis. There is a mild to moderate amount of mitral regurgitation. Aortic Valve The aortic valve is not well visualized secondary to technical limitations. The aortic valve opens well. There is no aortic valve stenosis. There is a mild amount of aortic regurgitation. Tricuspid Valve The tricuspid valve is not well visualized, but is grossly normal. There is no tricuspid stenosis. There is a mild amount of tricuspid regurgitation. There is moderate to severe pulmonary hypertension by echo. Best estimated RVSP is approximately 60-65 mm/Hg. Pulmonic Valve The pulmonic valve is not well visualized. Great Vessels The aortic root is not well visualized but is probably normal size. The inferior vena cava was not well visualized. Effusions There is no pericardial effusion. : FLYNN FERRO > Flynn Ferro
--- NOTE | 2018-06-13 21:23 | PDOC PROGRESS REPORT ---
Subjective Progress Note for:: 06/13/18 Subjective:: Patient has heart rate difficult to control. On exertion she gets short of breath on minimal exertion. She is also noted some orthopnea. CT scan shows residual CHF with some small bilateral pleural effusion. Pt is denying any chest arm or neck discomfort. Patient denying any PND, orthopnea. Patient denied any sustained palpitations, dizziness, syncope, near syncope. Patient denying any fever chills. Patient denying any other significant discomfort. Patient is maintaining atrial flutter/fibrillation however on exertion patient heart rate becomes uncontrolled. Review of systems: Rest review of systems negative. Medications: Medications have been reviewed. Reason For Visit: AFIB WITH RVR Physical Exam Vital Signs: Temp Pulse Resp BP Pulse Ox 98.0 F 136 H 18 114/90 H 91 L 06/13/18 11:56 06/13/18 11:56 06/13/18 11:56 06/13/18 11:56 06/13/18 11:56 Intake & Output 06/12/18 06/13/18 06/14/18 06:59 06:59 06:59 Intake Total 1178 1137 355 Output Total 1800 1600 100 Balance -622 -463 255 Weight 102.1 kg 103.7 kg Exam: GENERAL: well-nourished and in no acute distress. Alert and oriented x3 HEAD: Atraumatic, normocephalic. EYES: MANAS, sclera anicteric, conjunctiva are normal. ENT: Moist mucous membranes. No oral ulcerations or bleeding gums noted. No obvious ear, nose or throat abnormalities noted. NECK: supple without lymphadenopathy. Trachea is central. No cervical or axillary lymphadenopathy noted. Carotids are 2+, JVD WNL LUNGS: Breath sounds clear bilaterally. No wheezes rales or rhonchi noted. No significant dullness noted on percussion. CHEST: Palpation of the chest wall shows no significant chest wall tenderness. HEART: [place] [employer], No PSH, 1/6 DEEPIKA aortic area, 1/6 thurman systolic murmur mitral area, no rubs, no gallops. ABDOMEN: Soft, no significant tenderness appreciated, normoactive bowel sounds. No guarding, no rebound. No rigidity noted . No masses appreciated. EXTREMITIES: Pedal pulses are 1-2+, no calf tenderness noted. No clubbing or cyanosis. 1+ pedal edema noted NEUROLOGICAL: Focused neurological exam showed no significant neurologic deficit. Normal speech, no focal weakness appreciated. PSYCH: Normal mood, normal affect. Judgment and insight within normal limits. SKIN: No significant ecchymosis, skin is noted to be warm. MUSCULOSKELETAL EXAM: No significant acute joint swelling noted. Results Laboratory Results: 06/13/18 05:05 06/13/18 05:05 06/13/18 06/13/18 05:05 05:05 WBC 11.5 H RBC 4.05 Hgb 12.0 Hct 35.1 L MCV 87 MCH 29.8 MCHC 34.3 RDW 15.1 H Plt Count 312 Seg Neutrophils % 70.5 Lymphocytes % 22.2 Monocytes % 5.0 Eosinophils % 1.4 Basophils % 0.9 Absolute Neutrophils 8.1 Absolute Lymphocytes 2.6 Absolute Monocytes 0.6 Absolute Eosinophils 0.2 Absolute Basophils 0.1 Sodium 133.2 L Potassium 3.9 Chloride 98 Carbon Dioxide 24 Anion Gap 11 BUN 20 Creatinine 0.81 Est GFR ( Amer) > 60 Est GFR (Non-Af Amer) > 60 Glucose 117 H Calcium 9.3 Total Bilirubin 1.6 H AST 36 ALT 85 H Alkaline Phosphatase 105 Total Protein 6.9 Albumin 3.9 Triglycerides 99 Cholesterol 153.50 LDL Cholesterol Direct 78 VLDL Cholesterol 20.0 HDL Cholesterol 55 06/08/18 16:41 Blood Blood Culture - Final NO GROWTH IN 5 DAYS 06/08/18 15:07 Blood Blood Culture - Final NO GROWTH IN 5 DAYS 06/08/18 06/08/18 06/08/18 02:19 09:00 09:00 Creatine Kinase 52 CK-MB (CK-2) 0.77 Troponin I < 0.012 < 0.012 NT-Pro-B Natriuret Pep 3760 H 06/08/18 06/08/18 06/08/18 15:07 15:07 21:20 Creatine Kinase 52 53 CK-MB (CK-2) 0.74 Troponin I < 0.012 NT-Pro-B Natriuret Pep 06/08/18 06/09/18 06/10/18 21:20 05:36 04:17 Creatine Kinase CK-MB (CK-2) 0.79 Troponin I < 0.012 NT-Pro-B Natriuret Pep 2000 H 1270 H 06/10/18 06/11/18 06/13/18 04:17 05:10 05:05 Creatine Kinase CK-MB (CK-2) Troponin I < 0.012 NT-Pro-B Natriuret Pep 1230 H 1410 H EKG Comments: Atrial flutter with rapid ventricular response Impressions: Abdomen Ultrasound 06/08/18 00:00 IMPRESSION: 1. Fatty enlarged liver. 2. Contracted gallbladder without stones or evidence of acute cholecystitis. Abdomen/Pelvis CT 06/08/18 00:00 IMPRESSION: 1. No acute or suspicious abdominopelvic abnormality. 2. Pulmonary findings as above. Basilar effusions and airspace disease/volume loss. Concerning for pneumonia and/or congestive failure. Chest X-Ray 06/08/18 02:00 IMPRESSION: Little change from the prior, as above copyright [employer]- All Rights Reserved Venous Doppler Study 06/08/18 03:38 IMPRESSION: NO EVIDENCE DVT OR SVT IN EITHER LEG. Chest CT 06/13/18 00:00 IMPRESSION: Fluid overload or congestive failure, with alveolar and interstitial edema and small bilateral pleural effusions Assessment & Plan - Diagnosis (1) Atrial fibrillation with RVR Is this a current diagnosis for this admission?: Yes (2) Congestive heart failure Qualifiers: Heart failure type: diastolic Heart failure chronicity: acute Qualified Code(s): I50.31 - Acute diastolic (congestive) heart failure Is this a current diagnosis for this admission?: Yes (3) Hypertension Qualifiers: Hypertension type: essential hypertension Qualified Code(s): I10 - Essential (primary) hypertension Is this a current diagnosis for this admission?: Yes (4) Type 2 diabetes mellitus Qualifiers: Diabetes mellitus terminal operator insulin use: without terminal operator use Diabetes mellitus complication status: with unspecified complications Qualified Code(s): E11.8 - Type 2 diabetes mellitus with unspecified complications Is this a current diagnosis for this admission?: Yes (5) Abnormal LFTs Is this a current diagnosis for this admission?: Yes - Notes Notes: Atrial flutter fibrillation with RVR: Heart rate has been very difficult to control. Patient is on quite high dose of Cardizem, also started on metoprolol, last night started on Ranexa. Patient was ambulated in the hallway and a heart rate was in the 130s. Feel that patient will benefit from transesophageal echocardiogram followed by cardioversion. For this reason, I talked with Dr. Brodie Paiz who kindly accepted the patient. Alternative of ablation was also discussed. Congestive heart failure: Have obtained a BNP level and CT of the chest which shows residual CHF. Recommend IV Lasix. Hypertension: Currently under satisfactory control. Diabetes: Patient is well managed by the head of marketing analytics. Abnormal liver function test: Ultrasound abdomen was negative. Possibly related to hepatic congestion. This is getting improved. - Time Time with patient: Greater than 35 minutes - CODE STATUS was discussed, patient remains full code. Surrogate decision-maker patient's son. Multiple medical problems were addressed. More than 50% of the time spent coordinating care, discussing management plans with involved caregivers. Management plans discussed with involved personnels. Medical decision making was of moderate to high complexity, patient's has multiple comorbidities. Significant time spent in discussing transfer reasons and explaining what to expect especially as regards transesophageal echocardiogram, cardioversion, possible pacemaker placement, possible ablation etc. Medications reviewed and adjusted accordingly: Yes
== END 2018-06-13 13:00 | disposition short-term general hospital (02) | DRG 308 ==
LOC: ER 01:22 → EH 03:47 → 3S 06:12
PROVIDERS: ADMIT Family Medicine; ATTEND Family Medicine
DX: I48.91 Unspecified atrial fibrillation (principal); I50.31 Acute diastolic (congestive) heart failure; I11.0 Hypertensive heart disease with heart failure; R94.5 Abnormal results of liver function studies; E03.9 Hypothyroidism, unspecified; E11.9 Type 2 diabetes mellitus without complications; I25.10 Atherosclerotic heart disease of native coronary artery without angina pectoris; K21.9 Gastro-esophageal reflux disease without esophagitis; F41.9 Anxiety disorder, unspecified; Z79.84 Long term (current) use of oral hypoglycemic drugs; Z79.899 Other long term (current) drug therapy; Z88.7 Allergy status to serum and vaccine; Z90.710 Acquired absence of both cervix and uterus; Z87.891 Personal history of nicotine dependence
CPT/HCPCS: 36415; 71045; 71046; 71250; 74176; 76700; 80048; 80053; 80061; 80076; 82550; 82553; 82962; 83690; 83735; 83880; 84443; 84484; 85025; 85027; 85379; 87040; 87086; 93005; 93010; 93306; 93970; 96365; 96375; 99291; J0696; J1940; J3490

== ENCOUNTER → 2018-08-07 | Outpatient (CLI) | payer MEDICARE, OTHER ==
--- NOTE | 2018-08-07 11:56 | RADIOLOGY REPORT (SQ) ---
EXAM DESCRIPTION: CHEST PA/LATERAL COMPLETED DATE/TIME: 08/07/2018 11:41 am REASON FOR STUDY: COUGH COMPARISON: 06/08/2018 EXAM PARAMETERS: NUMBER OF VIEWS: two views TECHNIQUE: Digital Frontal and Lateral radiographic views of the chest acquired. RADIATION DOSE: NA LIMITATIONS: none FINDINGS: LUNGS AND PLEURA: Bandlike infiltrate right lower lung, new finding. Linear subsegmental densities in the left mid-lower lung zones may represent atelectasis/ infiltrate. Interval resolutio n of the small bilateral pleural effusions. MEDIASTINUM AND HILAR STRUCTURES: No masses or contour abnormalities. HEART AND VASCULAR STRUCTURES: Cardiomegaly with decrease in heart size. No evidence for failure. BONES: No acute findings. HARDWARE: Prior anterior median sternotomy and atrial device. OTHER: No other significant finding. IMPRESSION: 1. Right lower lobe infiltrate, new finding since the previous examination dated 2017. Correlation suggested. 2. Linear subsegmental densities in the left mid-lower lung zones may represent atelectasis/infiltrat e. 3. Interval resolution of the small pleural effusions since the prior study dated 06/08/2018. TECHNICAL DOCUMENTATION: JOB ID: [id number] [email or web address]- All Rights Reserved Reading location - IP/workstation name: [email or web address]
== END ==
LOC: OD 11:20
PROVIDERS: ATTEND Family Medicine
DX: R05 Cough (principal)
CPT/HCPCS: 71046

== ENCOUNTER → 2018-08-12 | Outpatient (CLI) | payer MEDICARE, OTHER ==
--- NOTE | 2018-08-12 13:07 | RADIOLOGY REPORT (SQ) ---
EXAM DESCRIPTION: CHEST PA/LATERAL COMPLETED DATE/TIME: 08/12/2018 12:54 pm REASON FOR STUDY: BRONCHOPNEUMONIA, UNSPECIFIED ORGANISM COMPARISON: 08/07/2018 EXAM PARAMETERS: NUMBER OF VIEWS: two views TECHNIQUE: Digital Frontal and Lateral radiographic views of the chest acquired. RADIATION DOSE: NA LIMITATIONS: none FINDINGS: LUNGS AND PLEURA: No significant interval change in the appearance of the parenchymal den sity in the right lower lung since the prior study. The left lung remains clear. No thorax or pleur al effusion. MEDIASTINUM AND HILAR STRUCTURES: No masses or contour abnormalities. HEART AND VASCULAR STRUCTURES: Stable appearance. No evidence for failure. BONES: No acute findings. HARDWARE: Prior anterior median sternotomy and atrial device. OTHER: No other significant finding. IMPRESSION: 1. No interval change in the appearance of the right lower lung infiltrate since the pr ior study dated 08/07/2018. Correlation suggested. TECHNICAL DOCUMENTATION: JOB ID: [id number] [employer]- All Rights Reserved Reading location - IP/workstation name: [email or web address]
== END ==
LOC: OD 12:44
PROVIDERS: ATTEND Family Medicine
DX: J18.0 Bronchopneumonia, unspecified organism (principal)
CPT/HCPCS: 71046

== ENCOUNTER → 2019-01-27 | Outpatient (CLI) | payer MEDICARE, OTHER ==
--- NOTE | 2019-01-27 10:39 | WOMENS IMAGING REPORT ---
EXAM DESCRIPTION: U/S PELVIS NON-OB COMPLETED DATE/TIME: 01/27/2019 8:03 am REASON FOR STUDY: R10.2 PELVIC AND PERINEAL PAIN R10.2 PELVIC AND PERINEAL PAINR10.9 UNSPECIFIED A BDOMINAL PAIN COMPARISON: None. TECHNIQUE: Dynamic and static grayscale images acquired of the pelvis via transabdominal approach an d recorded on PACS. Additional selected color Doppler and spectral images recorded. LIMITATIONS: None. FINDINGS: Transabdominal imaging of the pelvis shows the uterus and ovaries to be absent. No pelvic masses or fluid collections are seen. Urinary bladder is incompletely filled but otherwise unremark able unremarkable. IMPRESSION: No abnormal pelvic masses or fluid collections. Patient is status post hysterectomy and bilateral oophorectomy. TECHNICAL DOCUMENTATION: JOB ID: [id number] [employer]- All Rights Reserved Rev-10/26 Reading location - IP/workstation name: [email or web address]
--- NOTE | 2019-01-27 10:40 | WOMENS IMAGING REPORT ---
EXAM DESCRIPTION: U/S ABDOMEN TOTAL COMPLETED DATE/TIME: 01/27/2019 8:04 am REASON FOR STUDY: R10.9 UNSPECIFIED ABDOMINAL PAIN R10.2 PELVIC AND PERINEAL PAIN R10.9 UNSPECIFIE D ABDOMINAL PAIN COMPARISON: 06/08/2018 TECHNIQUE: Dynamic and static grayscale images acquired of the abdomen and recorded on PACS. Additio nal selected color Doppler and spectral images recorded. Note: Study does not meet criteria for complete doppler/duplex scan LIMITATIONS: Some structures poorly visualized secondary to bowel gas. FINDINGS: PANCREAS: No masses. Visualized pancreatic duct normal caliber. LIVER: No masses. Increased echogenicity. LIVER VASCULATURE: Normal directional flow of the main portal vein and hepatic veins. GALLBLADDER: Cholelithiasis. No secondary evidence of acute cholecystitis. ULTRASOUND-DETECTED HANEY'S SIGN: Negative. INTRAHEPATIC DUCTS AND COMMON DUCT: CBD and intrahepatic ducts normal caliber. No filling defects. INFERIOR VENA CAVA: Partially visualized. AORTA: Partially visualized. RIGHT KIDNEY: Normal in size measuring 11.7 cm. Normal echogenicity. No solid or suspicious mass es. No hydronephrosis. No calcifications. LEFT KIDNEY: Normal in size measuring 11.1 cm. Normal echogenicity. No solid or suspicious felicitas s. No hydronephrosis. No calcifications. SPLEEN: Normal in size measuring 9.3 cm. PERITONEAL AND PLEURAL SPACES: No ascites or effusions. OTHER: No other significant finding. IMPRESSION: 1. Cholelithiasis without secondary evidence of acute cholecystitis. 2. Hepatic steatosis. TECHNICAL DOCUMENTATION: JOB ID: [id number] [employer]- All Rights Reserved Reading location - IP/workstation name: [email or web address]
== END ==
LOC: WI 06:45
PROVIDERS: ATTEND Family Medicine
DX: K80.80 Other cholelithiasis without obstruction (principal); K76.0 Fatty (change of) liver, not elsewhere classified; R10.2 Pelvic and perineal pain; Z90.710 Acquired absence of both cervix and uterus
CPT/HCPCS: 76700; 76856

== ENCOUNTER 2019-02-20 09:01 | Day surgery (SDC) | payer MEDICARE, OTHER ==
[~2019-02-20 09:01] MED LIST: BUPIVACAINE HCL 0.75% INJ/PF (7.5 MG/1 ML) 10 ML SDV OS PRN; CHONDR SU A NA/HYALUR INTRAOC KIT (SURGICARE) ONE; EPINEPHRINE INJ/PF 1 MG/1 ML AMPULE ONE; KETOROLAC TROMETHAMINE 0.45% 4 DROP/0.4 ML DROPERETTE OS PRN; LIDOCAINE 1%/PHENYLEPHRINE 1.5% 1 ML VIAL ONE; LIDOCAINE 4% INJ/PF (40 MG/ML) 5 ML AMPUL OS PRN
[2019-02-20] MEDS: CYCLOPENTOLATE 0.2%/PHENYLEPHRINE 1% OPH SOLN 2 ML OS PRN ×3 (09:45→10:05)
[2019-02-20] MEDS: TROPICAMIDE 1% OPH SOLN 3 ML OS PRN ×3 (09:45→10:05)
[2019-02-20] MEDS: TETRACAINE HCL 0.5% OPH SOLN 4 ML OS PRN ×3 (09:45→10:17)
[2019-02-20] MEDS: BESIFLOXACIN HCL 0.6% OPH SUSP 5 ML BOTTLE OS PRN ×4 (09:45→10:43)
[2019-02-20] MEDS ORDERED: MIDAZOLAM 2 MG/2 ML INJ ONE (10:02)
[2019-02-20] MEDS: DORZOLAMIDE HCL 2%/TIMOLOL MALEAT 0.5% OPH SOLN 10 ML OS PRN ×2 (10:43)
--- NOTE | 2019-02-21 07:31 | Operative Report ---
Operative Report-[facility] Operative Report: DATE OF SURGERY: 02/20/2019 PREOPERATIVE DIAGNOSIS: Cataracts, left eye POSTOPERATIVE DIAGNOSIS: Cataract, left eye OPERATION: Cataract extraction with insertion of an IOL of the left eye. Intraocular Lens Model: [24.5 SN60 wf] reason for surgery: difficulty seeing to drive SURGEON: Patrick Lemos MD ANESTHESIA: Topical PROCEDURE: After obtaining appropriate consent, the patient's left eye was prepped and draped in a sterile fashion as well as the surgeon in the sterile manner and cataract surgery was started. First a paracentesis blade was used to make a side-port incision. Viscoelastic was used to inflate the anterior chamber. Next a 2.4 mm incision was made with a 2.4 mm blade, clear corneal temporarily. A continuous capsulorrhexis was made using a cystotome and Utrata forceps. Following this hydrodissection was carried out to make commands fully loose and mobile and it was rotated 90 degrees. Following this, a divide and conquer technique was used to phacoemulsify the lens. The remaining cortex was removed with an irrigation/aspiration. Provisc was instilled into the capsular bag to inflate the bag.The intracular lens was placed. The remaining viscoelastic material was removed with irrigation/aspiration. Following this, the incision was found to be watertight. Besivance and Cosopt was instilled into the eye and a protective shield was placed over the eye. The patient was turned to the postoperative recovery in a stable condition.
== END 2019-02-20 11:23 | disposition home or self-care (01) ==
LOC: SC 09:01
PROVIDERS: ATTEND Internal Medicine
DX: H25.13 Age-related nuclear cataract, bilateral (principal); H35.342 Macular cyst, hole, or pseudohole, left eye; H40.033 Anatomical narrow angle, bilateral; E11.9 Type 2 diabetes mellitus without complications; E78.00 Pure hypercholesterolemia, unspecified; E03.9 Hypothyroidism, unspecified; Z87.891 Personal history of nicotine dependence; Z79.82 Long term (current) use of aspirin; Z79.899 Other long term (current) drug therapy
CPT/HCPCS: 66984; V2632; J2250; J3490 ×2; A9270; J0171; J2370; 142

== ENCOUNTER 2019-05-14 07:25 | Day surgery (SDC) | payer MEDICARE, OTHER ==
[2019-05-12 11:33] LABS: HEMATOCRIT 39.2 % (36.0-47.0); HEMOGLOBIN 13.4 g/dL (12.0-15.5); MEAN CORPUSCULAR HEMOGLOBIN 30.6 pg (27.0-33.4); MEAN CORPUSCULAR HGB CONC 34.2 g/dL (32.0-36.0); MEAN CORPUSCULAR VOLUME 89 fl (80-97); PLATELET COUNT 395 10^3/uL (150-450); RED BLOOD COUNT 4.39 10^6/uL (3.72-5.28); RED CELL DISTRIBUTION WIDTH 12.8 % (11.5-14.0); WHITE BLOOD COUNT 7.3 10^3/uL (4.0-10.5)
[2019-05-12 12:12] LABS: ALBUMIN 4.4 g/dL (3.5-5.0); ALKALINE PHOSPHATASE 113 U/L (38-126); AMYLASE 40 U/L (30-110); ANION GAP 12 (5-19); ASPARTATE AMINO TRANSFERASE 30 U/L (14-36); BILIRUBIN,DIRECT 0.3 mg/dL (0.0-0.4); BILIRUBIN,TOTAL 0.5 mg/dL (0.2-1.3); BLOOD UREA NITROGEN 25 mg/dL (7-20); CALCIUM 10.2 mg/dL (8.4-10.2); CARBON DIOXIDE 27 mmol/L (22-30); CHLORIDE 101 mmol/L (98-107); GLUCOSE 85 mg/dL (75-110); POTASSIUM 4.4 mmol/L (3.6-5.0); TOTAL PROTEIN 7.6 g/dL (6.3-8.2)
--- NOTE | 2019-05-12 15:05 | EKG REPORT ---
SEVERITY:- ABNORMAL ECG - SINUS BRADYCARDIA IVCD, CONSIDER ATYPICAL LBBB : Confirmed by: Sully Carty MD 12-May-2019 15:04:34
[~2019-05-14 07:25] MED LIST changes: +ACETAMINOPHEN 325 MG TABLET PO PRN; -BUPIVACAINE HCL 0.75% INJ/PF (7.5 MG/1 ML) 10 ML SDV OS PRN; +CEFAZOLIN SODIUM 1 GM in DEXTROSE 5%-WATER 50 ML IV PRN; -CHONDR SU A NA/HYALUR INTRAOC KIT (SURGICARE) ONE; -EPINEPHRINE INJ/PF 1 MG/1 ML AMPULE ONE; -KETOROLAC TROMETHAMINE 0.45% 4 DROP/0.4 ML DROPERETTE OS PRN; +LACTATED RINGERS 1000 ML IV PRN; +LIDOCAINE 0.5% INJ-PF (5 MG/ML) 50 ML SDV SUBCUT PRN; -LIDOCAINE 1%/PHENYLEPHRINE 1.5% 1 ML VIAL ONE; -LIDOCAINE 4% INJ/PF (40 MG/ML) 5 ML AMPUL OS PRN
[2019-05-14] MEDS ORDERED: ONDANSETRON HCL INJ/PF 4 MG/2 ML SDV ONE (09:24)
[2019-05-14] MEDS ORDERED: MIDAZOLAM 2 MG/2 ML INJ ONE (09:24)
[2019-05-14] MEDS ORDERED: FENTANYL CITRATE INJ/PF 250 MCG/5 ML AMPULE ONE (09:24)
[2019-05-14] MEDS ORDERED: LIDOCAINE 2% INJ-PF (100 MG/5 ML) SYRINGE ONE (09:24)
[2019-05-14] MEDS ORDERED: PROPOFOL INJ 200 MG/20 ML VIAL IV ONE (09:24)
[2019-05-14] MEDS ORDERED: DEXAMETHASONE SOD PHOSPHATE INJ 4 MG/1 ML VIAL ONE (09:24)
[2019-05-14] MEDS ORDERED: BUPIVACAINE HCL 0.25 % INJ/PF (2.5 MG/1 ML) 30 ML VIAL ONE (09:31)
[2019-05-14] MEDS ORDERED: BUPIVACAINE HCL 0.25 % INJ/PF (2.5 MG/1 ML) 30 ML VIAL INJ ONE ×2 (10:06)
[2019-05-14] MEDS ORDERED: FENTANYL CITRATE INJ/PF 100 MCG/2 ML AMPUL IV PRN ×6 (10:23→12:02)
--- NOTE | 2019-05-14 10:50 | Discharge Summary ---
Discharge Summary (SDC) - Discharge Final Diagnosis: Symptomatic cholelithiasis with cholecystitis Date of Surgery: 05/14/19 Discharge Date: 05/14/19 Condition: Good Treatment or Instructions: Patient may resume preoperative medications, diet, activity. May take Toradol as needed pain. May shower. May follow-up with clinic in 1 to 2 weeks. No heavy lifting. Patient may shower. Referrals: ASHELY WEISS MD [Primary Care Provider] - Discharge Diet: As Tolerated Discharge Activity: Activity As Tolerated Home Care Assistance: None Needed Report the Following to Your Physician Immediately: Shortness of Breath, Increase in Pain, Fever over 101 Degrees
--- NOTE | 2019-05-14 10:55 | Operative Report ---
Operative Report DATE OF SURGERY: 05/14/19 PREOPERATIVE DIAGNOSIS: Symptomatic cholelithiasis with cholecystitis POSTOPERATIVE DIAGNOSIS: Same with intraoperative adhesions OPERATION: 1. Laparoscopic lysis of intra-abdominal adhesions. 2. Laparoscopic cholecystectomy SURGEON: XIMENA HERNANDZE ANESTHESIA: GA TISSUE REMOVED OR ALTERED: 1 gallbladder with contents COMPLICATIONS: None ESTIMATED BLOOD LOSS: Scant INTRAOPERATIVE FINDINGS: See below PROCEDURE: After obtaining informed consent, the patient was taken to the operating room. General Anesthesia was induced; the arms were extended, and the abdomen was exposed, and prepped and draped in a sterile fashion. Instrumentation was set up for laparoscopic cholecystectomy. Surgical plan and surgical timeout were conducted. A vertical incision was made above the umbilicus, and a verres needle was inserted uneventfully into the peritoneal cavity. Pneumoperitoneum was established. The verres needle was removed and a 5 mm trocar was inserted and a 5 mm flexible laparoscope was inserted. Visualization of the peritoneal cavity confirmed safe uneventful entry. 3 additional ports were inserted under direct visualization. There was no evidence of vascular or visceral injury. There were several adhesions between the anterior abdominal wall and the greater omentum which were taken down using sharp dissection. This took approximately 10 minutes. There was viscera involved in the adhesions. There were dense adhesions between the gallbladder, the gastroduodenal area, and the transverse colon. All of these adhesions were taken down using a combination of sharp, and careful hook electrocautery dissection. We now have the infundibulum of the gallbladder exposed satisfactorily. A grasper was placed on the fundus of the gallbladder and the gallbladder was elevated over the right surface of the liver; a second grasper was used to grasp the infundibulum of the gallbladder. Visualization of the subhepatic anatomy appeared normal. The neck of the gallbladder and junction with the cystic duct was dissected out. The Cystic artery was in a more posterior position. We now opened the triangle of Calot by dividing the peritoneal reflection on both the medial and lateral sides of the cystic duct- infundibular junction. The critical view was obtained. Photos were taken. We now milked the cystic duct of any possible stones opening up the cystic duct with scissors. There was free flow of bile, no stones. We then clipped the cystic duct proximally 2 times, once distally and divided the duct with scissors. Photos were taken again. The gallbladder was now removed from the undersurface of the liver using hook cautery dissection. The cystic artery as mentioned was in a more posterior location. It was surrounded with a right angle clamp, clipped twice proximally twice distally and divided with scissors. The remaining attachments between the gallbladder and the inferior surface of the liver bed were divided. Graspers were repositioned and the gallbladder was removed uneventfully from the abdominal cavity through the super umbilical port site incision. The specimen was examined, then passed off to pathology for permanent analysis. We returned to the peritoneal cavity check for bleeding, and evidence of bile leak, and there was none. Photos were taken. We Confirmed satisfactory placement of clips on cystic duct and cystic artery were secured . At this point we felt the operation was complete. The subcutaneous tissue was then anesthetized with quarter percent Marcaine Sponge and needle counts are correct. All ports removed under direct visualization pneumoperitoneum ev acuated, and 5 mm port wounds closed with 3-0 Vicryl suture, benzoin and Steri- Strips. The patient was extubated, and taken to the recovery room in stable condition.
[2019-05-14] MEDS ORDERED: ACETAMINOPHEN 1,000 MG/100 ML RTUPB IV ONE (11:38)
[2019-05-14] MEDS ORDERED: FENTANYL CITRATE INJ/PF 100 MCG/2 ML AMPUL ONE (11:38)
[2019-05-14] MEDS ORDERED: MEPERIDINE HCL/PF INJ 25 MG/1 ML DISP.SYRIN IV PRN (12:02)
[2019-05-14] MEDS ORDERED: DIPHENHYDRAMINE HCL 50 MG/ML VIAL IV PRN (12:02)
[2019-05-14] MEDS ORDERED: PROMETHAZINE HCL INJ 25 MG/1 ML VIAL IV PRN ×2 (12:02)
[2019-05-14] MEDS ORDERED: OXYCODONE-ACETAMINOPHEN 5-325 MG TABLET ONE (12:54)
[2019-05-14] MEDS ORDERED: SUCCINYLCHOLINE CHLORIDE INJ 200 MG/10 ML VIAL ONE (14:15)
[2019-05-14] MEDS ORDERED: NEOSTIGMINE METHYLSULFATE 10 MG/10 ML VIAL ONE (14:15)
[2019-05-14] MEDS ORDERED: GLYCOPYRROLATE 1 MG/5 ML VIAL ONE (14:15)
[2019-05-14] MEDS ORDERED: ROCURONIUM BROMIDE INJ 50 MG/5 ML VIAL IV ONE (14:15)
[2019-05-14 16:27] VITALS: BP 130/65
== END 2019-05-14 15:00 | disposition home or self-care (01) ==
LOC: OROUT 07:25
PROVIDERS: ATTEND Surgery
DX: K80.10 Calculus of gallbladder with chronic cholecystitis without obstruction (principal); K66.0 Peritoneal adhesions (postprocedural) (postinfection); E78.00 Pure hypercholesterolemia, unspecified; E03.9 Hypothyroidism, unspecified; I25.10 Atherosclerotic heart disease of native coronary artery without angina pectoris; I48.91 Unspecified atrial fibrillation; I11.9 Hypertensive heart disease without heart failure; Z95.2 Presence of prosthetic heart valve; Z87.891 Personal history of nicotine dependence; Z79.82 Long term (current) use of aspirin; Z79.899 Other long term (current) drug therapy
CPT/HCPCS: 93005; 36415 ×2; 82962; 82150; 84132; 85027; 80076; 80048; 88304 ×2; 93010; 00790; 47562; J2250; J0690; J3490 ×2; J1100; J3010 ×2; J2001; J2710; A9270; J0330; J2405; J7060; J2704; J0131; 790

== ENCOUNTER → 2020-02-23 | Outpatient (CLI) | payer MEDICARE, OTHER ==
--- NOTE | 2020-02-23 11:34 | WOMENS IMAGING REPORT ---
EXAM DESCRIPTION: BONE DENSITY HIP/SPINE IMAGES COMPLETED DATE/TIME: 02/23/2020 11:00 am REASON FOR STUDY: Z78.0 ASYMPTOMATIC MENOPAUSAL STATE Z78.0 ASYMPTOMATIC MENOPAUSAL STATE COMPARISON: None. TECHNIQUE: Dual-Energy X-ray Absorptiometry (DEXA) of the AP Spine and Hip. LIMITATIONS: None. FINDINGS: LUMBAR SPINE: The bone mineral density (BMD) measured from L1-L4 in the AP projection correlates with a T-score of 0.1, which is normal as defined by the World Health Organization. BMD Change vs Baseline: N/A HIP: The bone mineral density (BMD) measured in the left hip correlates with a T-score of -0.5, which is n ormal as defined by the World Health Organization. BMD Change vs Baseline: N/A 10 year Fracture Risk Assessment: Major Osteoporotic Fracture: Not available. Hip Fracture: Not available. IMPRESSION: 1. LUMBAR SPINE WHO CLASSIFICATION: NORMAL. 2. HIP WHO CLASSIFICATION: NORMAL. OVERALL ASSESSMENT: WHO CLASSIFICATION: NORMAL. COMMENT: The World Health Organization defines low BMD as follows: T-score: Normal: At or above -1.0 Osteopenia: Between -1.0 and -2.5 Osteoporosis: At or below -2.5 without fractures Established osteoporosis: At or below -2.5 with fractures In general, you may wish to consider: Diagnosis Treatment Follow-up DEXA Normal BMD Prevention 2-3 years Osteopenia Prevention/Therapy 1-2 years Osteoporosis Therapy Yearly TECHNICAL DOCUMENTATION: JOB ID: [id number] [employer]- All Rights Reserved Reading location - IP/workstation name: [email or web address]
== END ==
LOC: WI 09:40
PROVIDERS: ATTEND Physician Assistant
DX: Z12.31 Encounter for screening mammogram for malignant neoplasm of breast (principal); Z78.0 Asymptomatic menopausal state
CPT/HCPCS: 77080